=== PATIENT | female | born 1980 | race Caucasian/White ===

== ENCOUNTER 2022-06-01 16:40 | Inpatient (IN) ==
[2022-06-01] MEDS ORDERED: RAPID SEQUENCE INDUCTION BAG ONE (16:59)
[2022-06-01] MEDS ORDERED: dexAMETHasone**PF** 10 MG/ML VIAL ONE (17:00)
[2022-06-01] MEDS ORDERED: PIPERACILLIN/TAZOBACTAM 4.5 GM/120ML D5W IV ONE (17:08)
[2022-06-01] MEDS ORDERED: fentaNYL citrate PF 100 MCG/2 ML VIAL ONE ×2 (17:08→18:30)
[2022-06-01] MEDS ORDERED: PIPERACILLIN/TAZOBACTAM 4.5 GM/120 ML BAG IV ONE (17:15)
[2022-06-01] MEDS ORDERED: PANTOprazole 40 MG in SYRINGE 0 ML IV ONE (17:15)
[2022-06-01] MEDS ORDERED: [UNRECOGNIZED DRUG - OTHER] IV ONE (17:15)
[2022-06-01 17:19] LABS: iSTAT Creatinine 0.6 mg/dl (0.6-1.3); iSTAT Hemoglobin 12.9 g/dl (12.0-16.0); iSTAT Ionized Calcium 1.04 mmol/l (1.12-1.32); iSTAT Potassium 3.2 mmol/L (3.3-5.0)
[2022-06-01] MEDS ORDERED: OPTIRAY 350 100ml IV ONE (17:24)
[2022-06-01] MEDS ORDERED: ROCURONIUM BROMIDE 10 MG/ML 5 ML VIAL IV ONE ×6 (17:27→19:02)
[2022-06-01] MEDS ORDERED: SUCCINYLCHOLINE CHLORIDE 20 MG/ML 10 ML VIAL IV ONE (17:27)
[2022-06-01] MEDS ORDERED: LIDOCAINE 2% MPF LOCAL 5 ML VIAL ONE (17:27)
[2022-06-01] MEDS ORDERED: PROPOFOL IV EMULSION 10 MG/ML 20 ML VIAL IV ONE ×2 (17:27→19:02)
[2022-06-01] MEDS ORDERED: VANCOMYCIN HCL 1,250 MG in SODIUM CHLORIDE 0.9% 250 ML IV ONE (17:30)
[2022-06-01] MEDS ORDERED: LACTATED RINGER'S 250 ML IV ONE (17:34)
[2022-06-01] MEDS ORDERED: LACTATED RINGER'S 1,000 ML IV ONE (17:34)
[2022-06-01] MEDS ORDERED: CHLORHEXIDINE GLUCONATE 0.12% 480 ML MT ONE (17:38)
[2022-06-01] MEDS ORDERED: BUPIVACAINE/EPINEPHRINE 0.5% 1:200,000 1.8 ML CARP ONE (17:38)
--- NOTE | 2022-06-01 17:45 | CT Scan Report ---
CT soft tissue neck w con HISTORY: 41 years-old Female eval airway and abscess follow-up study in a patient with prior left-si ded facial surgery with drainage COMPARISON: None TECHNIQUE: Multiple axial CT images of the soft tissues of the neck were obtained following the intra venous administration of 88 mL Optiray 350. A dose lowering technique was used consistent with the pr incipals of FRANCIS. FINDINGS: The imaged intracranial structures are unremarkable. Orbits are within normal limits. Patent airway. The glottis is within normal limits. Unremarkable thyroid and submandibular glands. There is asymmetr ic enlargement and enhancement of the left sublingual gland. Mildly prominent subcentimeter left cerv ical chain and 70 lymph nodes measuring up to 8 mm are likely reactive. There is asymmetric enlargement with heterogeneous enhancement involving the left masseter with multi locular intramuscular abscess measuring up to 3.5 cm in cranial caudal dimension and 2.9 cm in AP dim ension. Edema extends into the adjacent parotid gland and subcutaneous tissues of the left face and c heek tracking along the platysma and anterior upper chest. Subpleural bulla of the lung apices. Masto id air cells and paranasal sinuses are clear. There is a 3 cm catheter present within the left cheek. Numerous dental caries are noted along with missing teeth. No osseous erosive changes. No large nirmal apical cysts. IMPRESSION: 1. 8 3 cm catheter is present within the left oral cavity. 2. Moderate left facial inflammatory changes with multilocular intramuscular abscess within the paddy ter muscle measuring up to approximately 4 cm. 3. Multifocal odontogenic disease. ACT 112: Negative or not required by law. The above report was generated using voice recognition software. It may contain grammatical, syntax o r spelling errors. Electronically signed by: Julio Esteban M.D. 06/01/2022 5:43 PM
[2022-06-01 17:48] LABS: Basophils # (auto) 0.04 K/uL (0-0.2); Basophils % (auto) 0.2 %; Eosinophils # (auto) 0.02 K/uL (0-0.50); Eosinophils % (auto) 0.1 %; Hematocrit (blood only) 34.1 % (37.0-47.0); Hemoglobin 11.9 g/dl (12.0-16.0); Immature Granulocytes # (auto) 0.11 K/uL (0.01-0.20); Immature Granulocytes % (auto) 0.7 %; Lymphocytes # (auto) 1.09 K/uL (1.2-3.4); Lymphocytes % (auto) 6.8 %; Mean Corpuscular Hemoglobin 32.7 pg (25.0-34.0); Mean Corpuscular Hgb Conc 34.9 g/dL (32.0-36.0); Mean Corpuscular Volume 93.7 fL (80.0-100.0); Mean Platelet Volume 10.1 fL (9.4-12.4); Monocytes # (auto) 0.67 K/uL (0.11-0.59); Monocytes % (auto) 4.2 %; Neutrophils # (auto) 14.13 K/uL (1.40-6.50); Platelet Count 264 K/uL (130-400); RDW Coefficient of Variation 13.1 % (11.5-14.5); Red Blood Count 3.64 M/uL (4.20-5.40); White Blood Count 16.06 K/ul (4.8-10.8)
[2022-06-01] MEDS ORDERED: MEPERIDINE HCL 25 MG/ML CARP/VIAL IV PRN (17:50)
[2022-06-01] MEDS ORDERED: MoRPHine SULFATE 10 MG/ML CARP/VIAL IV PRN (17:50)
[2022-06-01] MEDS ORDERED: ePHEDrine sulfate 50 MG/ML AMP IV PRN (17:50)
[2022-06-01] MEDS ORDERED: ATROPINE SULFATE 0.1 MG/ML 10ML SYR IV PRN (17:50)
[2022-06-01] MEDS ORDERED: fentaNYL citrate PF 100 MCG/2 ML VIAL IV PRN (17:50)
[2022-06-01] MEDS ORDERED: ONDANSETRON INJ 2 MG/ML 2 ML VIAL IV PRN (17:50)
--- NOTE | 2022-06-01 17:50 | Anesthesiology Consultation ---
Date of Service June 01, 2022 Assessment & Plan Chart Review Chart Review: Acceptable Risk for Surgery Consults Requested none ASA ASA2E Proposed Anesthesia Anesthesia Type: General Risk / Benefits Reviewed With: PT / POA / Parent / Guardian, Accepts Plan and Informed Consent Obtained History Surgery Operation Date: 06/01/22 17:45 Proposed Procedures p M. Facial Incision and Drainage - Pablo Garcia, DMD Height/Weight Weight: 67.4 kg Allergies Allergy/AdvReac Type Severity Reaction Status Date / Time bupropion [From Wellbutrin] Allergy Mild Verified 06/01/22 17:49 NPO Date Last Intake of Fluids: 06/01/22 Time Last Intake of Fluids: 12:09 Last Intake of Fluids Comment: sips Date Last Intake of Solids: 05/29/22 Time Last Intake of Solids: 18:00 Past Medical History Medical History (Updated 06/01/22 @ 17:48 by Filomena Bradley DO) Mandibular abscess Ovarian mass Vitamin B12 deficiency Exercise / Class Metabolic Activity II 4-5 Yardwork/Stairs/Walk up hill Past Surgical History Surgical History (Updated 06/01/22 @ 17:48 by Filomena Bradley DO) History of mandibular surgery History of salpingectomy Hx of hysterectomy Past Anesthesia History No Hx of Anesthesia Complications and No Family Hx of Anesthesia Complications History of PONV No Hx of PONV and No Hx of Motion Sickness Social History Smoking Status: Unknown if ever smoked Physical Exam Vital Signs Last Vital Signs Pulse 105 H 06/01/22 17:11 Resp 40 H 06/01/22 16:47 BP 135/85 06/01/22 16:47 Pulse Ox 100 06/01/22 16:47 O2 Del Method Room Air 06/01/22 16:47 ENMT Mouth: + dentition abnormality (left facial swelling unable to open mouth), + poor dentition and + small oral opening Thyromental Distance: > or= 3.5 Finger Breadths Mallampati Class: IV Neck trachea midline; neck extension not limited left submand swelling Respiratory + respiratory distress (mild) Auscultation: lungs clear to auscultation bilaterally Cardiovascular Rate/Rhythm: regular rhythm and + tachycardic Heart Sounds: no murmur Musculoskeletal Spine: normal cervical ROM Extremities: full ROM of extremities Neurologic moves all extremities Psychiatric Orientation: alert and oriented x 3 Testing Laboratory Results 06/01/22 17:07 POC Glucose (other) 100 H
--- NOTE | 2022-06-01 18:11 | Oral/Maxillofacial Consult ---
Date of Consultation June 01, 2022 Assessment & Plan (1) Ludwigs angina: (2) Carious teeth: (3) Abscess of pulp of tooth: History of Present Illness Attending Physician: Pablo Garcia DMD History of Present Illness Oral Maxillofacial Surgery Exam Present Complaint: I have pain/swelling/drainage from my infected lower teeth Went to ER at [facility] for I&D where a 1/4 Rodrigo was placed intraorally. She was sent home- the I&D was not adequate and the infection got much worse. For some reason she left [facility] and came to [facility]- Symptoms have been ongoing for a while. Now emergent necessity for I&D to protect airway this is an emergency Oral Exam: Finding--carious teeth very limited opening trismus secondary to infection Imaging: HISTORY: 41 years-old Female eval airway and abscess follow-up study in a patient with prior left-sided facial surgery with drainage FINDINGS: The imaged intracranial structures are unremarkable. Orbits are within normal limits. Patent airway. The glottis is within normal limits. Unremarkable thyroid and submandibular glands. There is asymmetric enlargement and enhancement of the left sublingual gland. Mildly prominent subcentimeter left cervical chain and 70 lymph nodes measuring up to 8 mm are likely reactive. There is asymmetric enlargement with heterogeneous enhancement involving the left masseter with multilocular intramuscular abscess measuring up to 3.5 cm in cranial caudal dimension and 2.9 cm in AP dimension. Edema extends into the adjacent parotid gland and subcutaneous tissues of the left face and cheek tracking along the platysma and anterior upper chest. Subpleural bulla of the lung apices. Mastoid air cells and paranasal sinuses are clear. There is a 3 cm catheter present within the left cheek. Numerous dental caries are noted along with missing teeth. No osseous erosive changes. No large periapical cysts. IMPRESSION: 1. 8 3 cm catheter is present within the left oral cavity. 2. Moderate left facial inflammatory changes with multilocular intramuscular abscess within the masseter muscle measuring up to approximately 4 cm. 3. Multifocal odontogenic disease. Soft tissue: floor of the mouth, tongue, hard/soft palate, posterior pharyngeal area all grossly swollen This is a pre Ted angina and need immediate I&D Oral Care: Overall oral care is fair Occlusion: Class I TMJ exam: Not able to detremibne Periodontal exam: There is evidence of periodontal pathology to the best that I can determine Head/Neck exam: Neck is swollen and red but no pus or abscess noted, some what limited FROM, some difficulty to extend and flex neck, swollen but no masses, no abnormalities, There is a strong concern of airway compromise and ICU abscission is planned post op. Treatment Plan: EMERGENCY CASE Set up with general anesthesia in hospital due to complexity of the procedure I reviewed the treatment plan and consent with the patient Understanding was expressed. Time was given for questions regarding the surgery, risks and post op care. Discussed alternative to treatment--procedure as planned,no other options The following teeth are decayed and fractured and removal is indicated lower left teeth and any other teeth that are infected. Risks discussed: Bleeding,Pain,swelling,infection, dry socket, delayed healing, nerve injury to face,lips,tongue,chin area which could be permanent (rare). TMJ, jaw stiffness, change in bite (rare), ear pain (referred). Sinus problems like fistula or infection. Need to leave a small root fragment in place to avoid injury to nerve or sinus. Relationship of teeth to nerve/sinus and risk of jaw fracture. Home care reviewed: tooth brushing, rinsing, follow up care with Dr Garcia. diet=[id number] dental. Discussed activity level, driving/work while on Rx pain Meds. Surgery to be set up as emergency NANCY with ICU admission Allergies Allergy/AdvReac Type Severity Reaction Status Date / Time bupropion [From Wellbutrin] Allergy Mild Verified 06/01/22 17:49 Patient History Medical History Mandibular abscess Ovarian mass Vitamin B12 deficiency Surgical History History of mandibular surgery History of salpingectomy Hx of hysterectomy Social History Smoking Status: Unknown if ever smoked Preferred Language: Ukrainian Feels Safe at Home: Yes Review of Systems Review of Systems: Physical Exam Constitutional WD/WN, vitals as above Eyes PERRL, conjunctivae normal, anicteric sclerae Mouth gross swelling and left abscess that is getting worse I&D needed as emergency Neck trachea midline, no thyromegaly, CT shows airway opened Thyroid: normal thyroid Respiratory rapid respiratory effort, lungs clear to auscultation Auscultation: lungs clear to auscultation bilaterally Cardiovascular RRR, no murmur, no edema Rate/Rhythm: regular rate and regular rhythm Skin no rashes, warm and red around the neck and submandibular area Results & Data Vital Signs (Past 12 Hours) Vital Signs Temp Pulse Pulse Resp BP BP Pulse Ox 06/01/22 17:15 104 H 23 127/77 100 06/01/22 17:17 102 H 23 126/93 97 06/01/22 17:15 95 H 19 124/89 96 06/01/22 17:01 101 H 28 H 128/87 99 06/01/22 17:19 105 H 40 H 100 06/01/22 17:00 06/01/22 17:35 36.7 C 104 H 23 127/77 100 06/01/22 17:11 105 H 06/01/22 16:47 104 H 40 H 135/85 100 O2 Del Method 06/01/22 17:15 Room Air 06/01/22 17:17 Room Air 06/01/22 17:15 Room Air 06/01/22 17:01 Room Air 06/01/22 17:19 Room Air 06/01/22 17:00 Room Air 06/01/22 17:35 Room Air 06/01/22 17:11 06/01/22 16:47 Room Air PG Care Time/CCT Total # of Minutes Spent Total Time Spent with Patient: Total time spent is greater than 50% in coordination of care (as documented) at patient's floor/unit and/or counseling patient: Coding Level of Care Code 40998 OFFICE CONSULT LVL Diagnoses Ludwigs angina K12.2 Carious teeth K02.9 Abscess of pulp of tooth K04.01
[2022-06-01 18:13] LABS: Alanine Aminotransferase 8 U/L (7-52); Albumin Level 4.1 gm/dl (3.4-5.0); Alkaline Phosphatase 61 U/L (34-104); Anion Gap 10 (3-11); Aspartate Aminotransferase 15 U/L (13-39); BUN Creatinine Ratio 16.4 (10-20); Bilirubin Direct 0.2 mg/dl (0-0.2); Bilirubin,Total 0.7 mg/dl (0.2-1.0); Blood Urea Nitrogen 10 mg/dl (6-23); Calcium 9.5 mg/dl (8.6-10.3); Carbon Dioxide 24 mmol/L (21-32); Chloride 103 mmol/L (98-107); Est GFR (African American) 132.4 ml/min; Est GFR (Non-African American) 114.2 ml/min; Glucose 99 mg/dl (70-99(Fasting)); Magnesium 1.6 mg/dl (1.7-2.4); Potassium 3.1 mmol/L (3.5-5.1); Sodium 137 mmol/L (136-145); Total Protein 7.6 gm/dl (6.0-8.3)
[2022-06-01 18:18] LABS: Troponin I High Sensitivity 12.2 pg/ml (0-14)
[2022-06-01] MEDS ORDERED: ONDANSETRON INJ 2 MG/ML 2 ML VIAL ONE (18:30)
--- NOTE | 2022-06-01 19:30 | Anesthesiology Progress Note ---
Date of Service June 01, 2022 Anesthesia Post Procedure Vital Signs Vital Signs: Temp Pulse Pulse Resp BP BP Pulse Ox 06/01/22 17:15 104 H 23 127/77 100 06/01/22 17:17 102 H 23 126/93 97 06/01/22 17:15 95 H 19 124/89 96 06/01/22 17:01 101 H 28 H 128/87 99 06/01/22 17:19 105 H 40 H 100 06/01/22 17:00 06/01/22 17:35 36.7 C 104 H 23 127/77 100 06/01/22 17:11 105 H 06/01/22 16:47 104 H 40 H 135/85 100 O2 Del Method 06/01/22 17:15 Room Air 06/01/22 17:17 Room Air 06/01/22 17:15 Room Air 06/01/22 17:01 Room Air 06/01/22 17:19 Room Air 06/01/22 17:00 Room Air 06/01/22 17:35 Room Air 06/01/22 17:11 06/01/22 16:47 Room Air Transfer of Care Handoff Completed per policy Notes Mental Status: see notes below Nausea / Vomiting: adequately controlled Pain: adequately controlled Airway Patency, RR, SpO2: see Notes below BP & HR: stable & adequate Hydration State: stable & adequate Anesthetic Complications: no major complications apparent Notes: Pt intubated in OR and taken to ICU intubated for AW protection overnight given I+D and submandibular abscess. No complications noted, report to RN and Outreach Clinician.
[2022-06-01] MEDS ORDERED: fentaNYL citrate 2,500 MCG/250 ML BAG IV ONE (19:31)
[2022-06-01] MEDS ORDERED: fentaNYL BOLUS from BAG IV PRN (19:33)
[2022-06-01] MEDS ORDERED: STAT IV Infusion **Titration per Protocol STA ×2 (19:33→20:53)
--- NOTE | 2022-06-01 19:39 | Operative Report ---
PG Post Operative Report Pre & Post Diagnosis Operation Date: 06/01/22 17:45 Pre-Op Diagnosis: SOB,LOCKED JAW,HARD TIME BREATHING Post-Op Diagnosis: SOB,LOCKED JAW,HARD TIME BREATHING I identified the patient and participated in the time-out.: Yes Procedure Operation Date: 06/01/22 17:45 Actual Procedures p Facial Incision and Drainage(Left) - Pablo Garcia DMD Surgeon Pablo Garcia DMD Breastfeeding Peer Counselor none Estimated Blood Loss 10 Findings Consistent with Post-Op Diagnosis gross infection lower left submandibular and submental area I and D site mucobuccal space left side with small Rodrigo drain--this tissue is very infected and the wound has dehisced. Exposure of the mandibular bone Specimens Culture pus from abscess Anesthesia Type General Complications none Indications facial abscess left side Description of Procedure CPT 98963 I and D deep neck, submandibular abscess left side K12.2 Ludwigs angina left submandibular and submental [id number] for surgical extraction of # 19,20 Actual Procedures p Incision and Drainage left Submandibular/ mandibular and submental space Abscess; Removal of Tooth #30 and 29(Not Applicable) - Pablo Garcia DMD Once cleared for surgery general anesthesia was achieved, the eyes were protected by the anesthesia dept criteria. A time out was take for patient ID, antibiotics, equipment and position verification once all agreed the procedure began. Local anesthesia using Marcaine with a vasoconstrictor ( 1.8 ml per site) given into right inferior alveolar nerve A throat pack was placed after the oral cavity was irrigated with saline. Once a surgical level of anesthesia was obtained and the local anesthesia was given time for the blocks the surgery was started. I turned my attention to the infection which was located in the submandibular and submental area. The tongue was elevated and there was also swelling associated with tooth #19 and 20 ( see CT scan report) Incision and Drainage Abril was drained at [facility] yesterday however a very small Rodrigo drain was placed only in the mucobuccal space which was inadequate to drain the infection. Using a 15 blade and scissors I was able to remove the prior drain and extend the small drainage site. I and D site mucobuccal space left side with small Rodrigo drain--this tissue is very infected and the wound has dehisced. Once the incision was made a lot of pus extruded from the site. This drainage was cultured for anaerobic and aerobic bacteria. A curved hemostat was carefully placed into the infected space along the medial/ lateral side of the lower jaw and into the submental space. Some further drainage was now allowed to escape. I palpated the chin and submental area and no further drainage was expressed. The area was irrigated with at least 100 ml of NS solution. I now turned my attention to the submandibular and masseter and parotid spaces. The 15 blade was used to make a small incision in the submandibular area below the most fluctuant area. A curved hemostat was carefully placed into the infected space along the masseter and temporal muscles to drain the pocket as seen on the CT scan. This allowed a lot of drainage. I now placed a 1/2 inch Rodrigo from the submandibular site into the mouth Another drain was placed superior into the parotic area space with a 1/4 Rodrigo drain . The submental area did not need a drain as this swelling and the anterior chest swelling is reactive in nature w/o abscess. Some further drainage was now allowed to escape.The drains were secured with a 5-0 Nylon. Lower # 19,20 The full thick Muco-periosteal flap that was made on the facial aspect from # 17-22 for the I&D was used to gain access to the teeth. The flap was reflected to expose the the subperiosteal space the bone adjacent to # 19,20. The rongeur was used to remove bone, the teeth were removed with a 301 elevator, the mental nerve was intact, there was a large amount of granulation tissue on the apex and some more pus that was expressed. The patient tolerated the surgery very well. The gingival tissue and Rodrigo drain was suture with a 2-0 chromic I inspected the sites to insure all bleeding was controlled. I removed the throat pack and suctioned the throat. All instrument and sponge count was correct. An OG tube was passed and left in place as she will be transfer to ICU for airway management secondary to the gross facial swelling and her inability to swollen pre-op. The patient was taken to the ICU with NG tube and intubated with all vital sign stable. The patient tolerated the surgery very well. I will follow the patient tomorrow afternoon Discussed the case with OFELIA Henry I attest to the content of the Intraoperative Record and any orders documented therein. Any exceptions are noted below.
--- NOTE | 2022-06-01 19:40 | Critical Care Consultation ---
Date of Consultation June 01, 2022 Assessment & Plan (1) Ludwigs angina: (2) Mandibular abscess: (3) Endotracheally intubated: Plan Patient is status post I&D of mandibular abscess. Will likely perform SBT and extubate tomorrow as long as cuff leak is present. Continue sedation tonight with fentanyl. Consider the addition of propofol or Precedex if required to maintain RASS of -1. Continue vancomycin and Zosyn. Continue lung protective ventilation strategy. Replace electrolytes per protocol History of Present Illness Reason for Consultation: Airway protection Attending Physician: Galindo Concepcion MD History of Present Illness 41-year-old female who presented to the ER due to increased swelling in her submandibular region and difficulty breathing. Yesterday she went to the ER in [place] and had a Rodrigo drain placed. She had increased swelling and pain on arrival to the ER. She was taken back emergently to the OR where Dr. Garcia did an extensive I&D of the submandibular region and placed a drain. She is currently intubated and sedated in the ICU. History is unobtainable from the patient. History is obtained from discussion with the anesthesiologist, ER physician and oral maxillofacial surgeon. Also discussed at bedside with RN. She received 10 mg of dexamethasone in the ER. She also received vancomycin and Zosyn. Allergies Allergy/AdvReac Type Severity Reaction Status Date / Time bupropion [From Wellbutrin] Allergy Mild Verified 06/01/22 17:49 Home Medications Medication Instructions Recorded Confirmed Type escitalopram oxalate 20 mg tablet 20 mg PO DAILY 06/01/22 06/01/22 History Patient History Medical History (Updated 06/01/22 @ 19:40 by Aftab Jain MD) Endotracheally intubated Mandibular abscess Ovarian mass Vitamin B12 deficiency Surgical History History of mandibular surgery History of salpingectomy Hx of hysterectomy Social History Smoking Status: Unknown if ever smoked Preferred Language: Panamanian Feels Safe at Home: Yes Review of Systems Review of Systems: Unobtainable due to endotracheal tube and Unobtainable due to reduced consciousness Physical Exam Physical Exam: Constitutional: Intubated and sedated. Eyes: Pupils are equal round and reactive to light. Conjunctivae are normal. Anicteric sclera. Ears nose, mouth and throat: Intubated and sedated. Neck: Trachea is midline. Visual inspection is normal. Respiratory: Clear to auscultation bilaterally. No use of accessory muscles. No significant clubbing noted. Cardiovascular: Regular rate and rhythm. No murmurs. No edema. Gastrointestinal: Normal bowel sounds, soft, nontender and nondistended. No hepatosplenomegaly noted. Musculoskeletal: No cyanosis. Patient is able to move all extremities. Strength is 5 out of 5 in the upper and lower extremities. Skin: No rashes, warm dry and intact. Neurologic: No obvious focal neurological deficits seen. Psychiatric: Intubated and sedated. Results & Data Results & Data Vital Signs (Past 12 Hours) Vital Signs Temp Pulse Pulse Resp BP BP Pulse Ox 06/01/22 17:15 104 H 23 127/77 100 06/01/22 17:17 102 H 23 126/93 97 06/01/22 17:15 95 H 19 124/89 96 06/01/22 17:01 101 H 28 H 128/87 99 06/01/22 17:19 105 H 40 H 100 06/01/22 17:00 06/01/22 17:35 36.7 C 104 H 23 127/77 100 06/01/22 17:11 105 H 06/01/22 16:47 104 H 40 H 135/85 100 O2 Del Method 06/01/22 17:15 Room Air 06/01/22 17:17 Room Air 06/01/22 17:15 Room Air 06/01/22 17:01 Room Air 06/01/22 17:19 Room Air 06/01/22 17:00 Room Air 06/01/22 17:35 Room Air 06/01/22 17:11 06/01/22 16:47 Room Air Coding Level of Care Code 20819 IN/OBS CONSULT LVL 4,60M Diagnoses Ludwigs angina K12.2 Mandibular abscess M27.2 Endotracheally intubated Z97.8
[2022-06-01] MEDS ORDERED: dexMEDEtomidine 200 MCG/50 ML BAG IV SCH (19:45)
[2022-06-01] MEDS ORDERED: fentaNYL citrate 2,500 MCG/250 ML BAG IV SCH (19:45)
[2022-06-01] MEDS ORDERED: CALCIUM GLUCONATE 10% 1,000 MG in DEXTROSE 5% 50 ML IV ONE (19:59)
[2022-06-01] MEDS ORDERED: STAT IV STA (19:59)
[2022-06-01 20:27] LABS: iSTAT Allen Test Pass; iSTAT Art Bld Gas pCO2 Correct 26 mmHg (35-46); iSTAT Art Bld Gas pH Corrected 7.492 (7.35-7.45); iSTAT Arterial Blood Gas HCO3 20 meg/L (19-24); iSTAT Arterial Blood Gas pCO2 25 mmHg (35-46); iSTAT Arterial Blood Gas pO2 140 mmHg (80-95); iSTAT Arterial Blood Gas pO2 C 143; iSTAT Carbon Dioxide 20 mmol/L (24-31); iSTAT FiO2 40 %; iSTAT Hematocrit 30 % (37-47); iSTAT Hemoglobin 10.2 g/dl (12.0-16.0); iSTAT Potassium 3.2 mmol/L (3.3-5.0); iSTAT Site R Radial; iSTAT Sodium 137 mmol/L (135-144)
[2022-06-01] MEDS: propofoL 1,000 MG/100 ML VIAL IV SCH (20:30)
[2022-06-01] MEDS ORDERED: PROPOFOL IV EMULSION 10 MG/ML 100 ML VIAL IV ONE (20:49)
[2022-06-01] MEDS ORDERED: PROPOFOL BOLUS FROM BAG IV PRN (20:53)
--- NOTE | 2022-06-01 21:03 | History & Physical Report ---
Date of Service June 01, 2022 Assessment & Plan (1) Ludwigs angina: (2) Mandibular abscess: (3) Abscess of pulp of tooth: (4) Carious teeth: (5) Endotracheally intubated: Plan Mandibular abscess with carious teeth Status post I&D of left facial abscess with with teeth extraction by Dr. Garcia EBL 10 mL Currently patient is intubated in the ICU Plan is for extubation tomorrow Per Dr. Garcia once patient is extubated can place patient on clear liquid diet Per Dr. Garcia IV Unasyn should be adequate Currently on IV Zosyn Intraoperative cultures pending Blood cultures pending Hypokalemia Hypomagnesemia Being replaced by violin mechanic Chronic medical problems include: Tobacco abuse allergic to nicotine patch, depression, GERD and history of peptic ulcer disease Pt only home medication is escitalopram per EPIC, will need to resume once alert; also will need to confirm med rec once alert DVT Ppx: SCDS Dispo: ICU, likely downgrade tomorrow once extubated PCP: Katie Chase - out of [place] FULL CODE A total of 75 minutes was spent with greater than 50% of that time personally viewing all current laboratory work and diagnostic imaging studies obtained in the ED. Additionally, I was able to view the patients past medication reconciliation and history with direct visualization in the patients chart. Included in the time above, a portion of that time was spent assessing the pa tient while discussing and collaborating with specialists, if necessary, and making medical decision making on treatment plan. All of the above was collaborated with Dr Concepcion. Please see addendum for further details. Admission and Anticipated Discharge Date Admission Date: June 01, 2022 History of Present Illness Chief Complaint: Dental infection, pt admitted to ICU Primary Care Provider: LAURA Saunders This is a 41-year-old female who has significant past medical history of GERD, peptic ulcer disease, CARINE, tobacco use disorder who presented to ED secondary to worsening dental infection and shortness of breath. Of significance patient was seen at [facility] ER yesterday due to dental infection and a Rodrigo drain was placed. She was placed on oral antibiotics and received IV antibiotics while in ED. Due to worsening infection patient started developing difficulty breathing and presented to ER. Patient was taken emergently to the OR with Dr. Garcia who did an extensive I&D in the submandibular region, teeth were extracted and 2 drains were placed. Her airway remained patent and she remains intubated. He feels source control has been achieved. She is admitted to the ICU secondary to currently being intubated. ROS unobtainable due to unconsciousness. In ED she received IV vancomycin and Zosyn. Allergies Allergy/AdvReac Type Severity Reaction Status Date / Time bupropion [From Wellbutrin] Allergy Mild Verified 06/01/22 17:49 keflex Allergy Mild Hives Uncoded 06/01/22 20:50 Home Medications Medication Instructions Recorded Confirmed Type escitalopram oxalate 20 mg tablet 20 mg PO DAILY 06/01/22 06/01/22 History Past Med/Surg History Medical History Endotracheally intubated Mandibular abscess Ovarian mass Vitamin B12 deficiency Surgical History (Updated 06/01/22 @ 20:55 by Haylee Henry PA-C) History of History of mandibular surgery History of salpingectomy Hx of hysterectomy Family History Other Coronary heart disease Diabetes Social History Smoking Status: Current every day smoker Preferred Language: Paraguayan Communication Ability: Unable Review of Systems Review of Systems: Unobtainable due to endotracheal tube Physical Exam Physical Exam: Please refer to attending addendum for physical exam findings. Results & Data Results & Data Vital Signs (Past 12 Hours) Vital Signs Temp Pulse Pulse Resp BP BP Pulse Ox 06/01/22 19:51 37.6 C H 92 H 18 130/85 100 06/01/22 19:20 18 06/01/22 19:41 37.5 C 94 H 18 135/86 100 06/01/22 19:31 37.6 C H 96 H 16 129/91 100 06/01/22 19:21 37.5 C 96 H 20 129/87 100 06/01/22 17:15 104 H 23 127/77 100 06/01/22 17:17 102 H 23 126/93 97 06/01/22 17:15 95 H 19 124/89 96 06/01/22 17:01 101 H 28 H 128/87 99 06/01/22 17:19 105 H 40 H 100 06/01/22 17:00 06/01/22 17:35 36.7 C 104 H 23 127/77 100 06/01/22 17:11 105 H 06/01/22 16:47 104 H 40 H 135/85 100 O2 Del Method FiO2 06/01/22 19:51 Mechanical Vent 40 06/01/22 19:20 40 06/01/22 19:41 Mechanical Vent 40 06/01/22 19:31 Mechanical Vent 40 06/01/22 19:21 Mechanical Vent 40 06/01/22 17:15 Room Air 06/01/22 17:17 Room Air 06/01/22 17:15 Room Air 06/01/22 17:01 Room Air 06/01/22 17:19 Room Air 06/01/22 17:00 Room Air 06/01/22 17:35 Room Air 06/01/22 17:11 06/01/22 16:47 Room Air Diagnostic Findings Soft Tissue Neck CT 06/01/22 17:17 CT soft tissue neck w con HISTORY: 41 years-old Female eval airway and abscess follow-up study in a patient with prior left-sided facial surgery with drainage COMPARISON: None TECHNIQUE: Multiple axial CT images of the soft tissues of the neck were obtained following the intravenous administration of 88 mL Optiray 350. A dose lowering technique was used consistent with the principals of ALARA. FINDINGS: The imaged intracranial structures are unremarkable. Orbits are within normal limits. Patent airway. The glottis is within normal limits. Unremarkable thyroid and submandibular glands. There is asymmetric enlargement and enhancement of the left sublingual gland. Mildly prominent subcentimeter left cervical chain and 70 lymph nodes measuring up to 8 mm are likely reactive. There is asymmetric enlargement with heterogeneous enhancement involving the l eft masseter with multilocular intramuscular abscess measuring up to 3.5 cm in cranial caudal dimension and 2.9 cm in AP dimension. Edema extends into the adjacent parotid gland and subcutaneous tissues of the left face and cheek tracking along the platysma and anterior upper chest. Subpleural bulla of the lung apices. Mastoid air cells and paranasal sinuses are clear. There is a 3 cm catheter present within the left cheek. Numerous dental caries are noted along with missing teeth. No osseous erosive changes. No large periapical cysts. IMPRESSION: 1. 8 3 cm catheter is present within the left oral cavity. 2. Moderate left facial inflammatory changes with multilocular intramuscular abscess within the masseter muscle measuring up to approximately 4 cm. 3. Multifocal odontogenic disease. ACT 112: Negative or not required by law. The above report was generated using voice recognition software. It may contain grammatical, syntax or spelling errors. Electronically signed by: Julio Esteban M.D. 06/01/2022 5:43 PM Medications Administered Current Inpatient Medications Fentanyl Citrate (Fentanyl Bolus From Bag) 50 mcg IV Q60M PRN PRN Reason: Pain or Agitation Stop: 06/15/22 19:32 Magnesium Sulfate/Dextrose (Magnesium Sulfate / D5w) 1 gm in 100 mls @ 50 mls/hr IV Q2H REYNALDO Stop: 06/02/22 00:59 Potassium Chloride (K Will / Wtr) 10 meq in 100 mls @ 100 mls/hr IV Q1H REYNALDO Stop: 06/01/22 22:59 Fentanyl Citrate (Fentanyl Citrate) 2,500 mcg in 250 mls @ 2.5 mls/hr IV .Q96H REYNALDO; Protocol Stop: 06/15/22 19:44 Piperacillin Sod/Tazobactam (Sod 3.375 gm/ Dextrose) 115 mls @ 28.75 mls/hr IV Q8H REYNALDO; Protocol Stop: 06/08/22 21:59 Propofol (Diprivan) 1,000 mg in 100 mls @ 8.088 mls/hr IV .[id number] REYNALDO; Protocol Stop: 06/04/22 20:59 Miscellaneous (Icu Electrolyte Replacement Protocol) 1 each N/A BID@06,18 REYNALDO; Protocol Stop: 06/09/22 05:59 Miscellaneous (Icu Protocol For Hyperglycemia) 1 each N/A ACHS REYNALDO Stop: 06/03/22 20:59 Miscellaneous (Stat Iv Infusion Titration Per Protocol) 1 each N/A NOW STA Stop: 06/01/22 20:54 Propofol (Propofol Bolus From Bag) 20 mg IV Q5M PRN PRN Reason: Sedation Stop: 06/04/22 20:52 COVID-19 Results Results COVID-19 Adm Lab Results: RBC 3.64 M/uL (4.20-5.40) L 06/01/22 WBC 16.06 K/ul (4.8-10.8) H 06/01/22 Hgb 11.9 g/dl (12.0-16.0) L 06/01/22 Hct 34.1 % (37.0-47.0) L 06/01/22 Plt Count 264 K/uL (130-400) 06/01/22 Neutrophils (%) (Auto) 88.0 % 06/01/22 Lymphocytes (%) (Auto) 6.8 % 06/01/22 Monocytes # (Auto) 0.67 K/uL (0.11-0.59) H 06/01/22 Eosinophils # (Auto) 0.02 K/uL (0-0.50) 06/01/22 Immature Granulocyte % (Auto) 0.7 % 06/01/22 Neutrophils # (Auto) 14.13 K/uL (1.40-6.50) H 06/01/22 Lymphocytes # (Auto) 1.09 K/uL (1.2-3.4) L 06/01/22 Monocytes # (Auto) 0.67 K/uL (0.11-0.59) H 06/01/22 Eosinophils # (Auto) 0.02 K/uL (0-0.50) 06/01/22 Basophils # (Auto) 0.04 K/uL (0-0.2) 06/01/22 Immature Granulocyte # (Auto) 0.11 K/uL (0.01-0.20) 3 Na 137 mmol/L (136-145) 06/01/22 K 3.1 mmol/L (3.5-5.1) L 06/01/22 Cl 103 mmol/L (98-107) 06/01/22 CO2 24 mmol/L (21-32) 06/01/22 Anion Gap 10 (3-11) 06/01/22 BUN 10 mg/dl (6-23) 06/01/22 Creatinine 0.61 mg/dl (0.6-1.2) 06/01/22 BUN/Creatinine Ratio 16.4 (10-20) 06/01/22 Glucose Level 99 mg/dl (70-99(Fasting)) 06/01/22 Ca 9.5 mg/dl (8.6-10.3) 06/01/22 Total Bilirubin 0.7 mg/dl (0.2-1.0) 06/01/22 Direct Bilirubin 0.2 mg/dl (0-0.2) 06/01/22 AST/SGOT 15 U/L (13-39) 06/01/22 ALT/SGPT 8 U/L (7-52) 06/01/22 Alkaline Phosphatase 61 U/L (34-104) 06/01/22 Total Protein 7.6 gm/dl (6.0-8.3) 06/01/22 Albumin 4.1 gm/dl (3.4-5.0) 06/01/22 Procalcitonin 0.28 ng/ml (0-0.5) 06/01/22 SARS-CoV-2, RNA, NAAT NEGATIVE (NEGATIVE) 06/01/22 Sample Site R Radial 06/01/22 POC pH 7.50 (7.35-7.45) H 06/01/22 POC pCO2 25 mmHg (35-46) L 06/01/22 POC pO2 140 mmHg (80-95) H 06/01/22 POC HCO3 20 jose antonio/L (19-24) 06/01/22 POC Total CO2 20 mmol/L (24-31) L 06/01/22 POC Base Excess -4.0 jose antonio/L (-9-1.8) 06/01/22 Ox Delivery Device Ventilator 06/01/22 POC O2 Rate 18 06/01/22 Tidal Volume 400 06/01/22 PEEP 5 06/01/22 Code Status & VTE Plan Code Status Full code VTE Prophylaxis Plan VTE Prophylaxis will be ordered: Yes Supervising Physician Co-Signing Physician Notes Attending addendum: The patient was seen and examined in the ICU He is intubated following I&D of left mandibular abscess with extraction of 2 associated teeth Apparently she had had a Rodrigo drain was placed in left mandibular tooth yesterday in the ER at [facility] in [place] She complained to have increasing swelling of the left mandibular area associated with pain and difficulty in eating when she was taken to ER at [place] today Unfortunately she was brought back to ER at [facility] with increasing shortness of breath and swelling of the left mandible and adjoining area She was urgently taken to the OR and dental abscess was removed with extraction of 2 teeth from left mandible area and 2 drainage tube was placed in She was intubated and was placed in ICU She was given intravenous Zosyn and vancomycin Cultures were taken On examination Intubated and sedated in the ICU Hemodynamically stable Chestdecreased breath sounds bilaterally [id number] Abdomenbenign Heart admission labs and imaging studies reviewed Status post left mandibular abscess I&D and extraction of 2 teeth Patient is intubated and sedated Continue current antibiotic and await culture and sensitivity Appreciate input from violin mechanic and oropharyngeal surgeon Agree with assessment as outlined above by JAYNA Perry Dr
[2022-06-01] MEDS: MAGNESIUM SULFATE / D5W 1 GM/100 ML BAG IV SCH ×2 (21:08→22:38)
[2022-06-01] MEDS: POTASSIUM CHLORIDE / WTR 10 MEQ/100 ML PLCT IV SCH ×3 (21:08→23:11)
[2022-06-01] MEDS: ICU Protocol for HYPERglycemia SCH (21:09)
[2022-06-01] MEDS ORDERED: SODIUM CHLORIDE 0.9% 500 ML IV SCH (21:30)
[2022-06-01 21:51] LABS: Appearance Urine Clear (Clear); Bacteria Urine Automated Negative (Negative); Bilirubin Urine Negative (Negative); Blood Urine 2+ (Negative); Cast Urine Automated 0 /lpf (0-5); Color Urine Yellow; Epithelial Cell Urine Auto 0-5 /lpf (0-5); Glucose Urine UA Negative (Negative); Ketones Urine 2+ (Negative); Leukocyte Esterase Urine Negative (Negative); Nitrite Urine Negative (Negative); Protein Urine Negative (Negative); Specific Gravity Urine 1.033 (1.000-1.030); Urobilinogen Urine Negative (Negative); WBC Urine Automated 0 /hpf (0-5)
[2022-06-01] MEDS: PIPERACILLIN/TAZOBACTAM 3.375 GM in DEXTROSE 5% 100 ML IV SCH (22:39)
[2022-06-02] MEDS: POTASSIUM CHLORIDE / WTR 10 MEQ/100 ML PLCT IV SCH ×5 (00:20→11:42)
[2022-06-02 00:23] LABS: BUN Creatinine Ratio 10.6 (10-20); Calcium 8.7 mg/dl (8.6-10.3); Creatinine Clr Calc Pharmacy 156.3 ml/min; Est GFR (African American) 144.2 ml/min; Est GFR (Non-African American) 124.4 ml/min; Magnesium 2.4 mg/dl (1.7-2.4); Phosphorus 2.4 mg/dl (2.5-4.9); Potassium 4.1 mmol/L (3.5-5.1)
[2022-06-02] MEDS: MAGNESIUM SULFATE / D5W 1 GM/100 ML BAG IV SCH (01:00)
[2022-06-02] MEDS: propofoL 1,000 MG/100 ML VIAL IV SCH ×2 (01:04→05:14)
--- NOTE | 2022-06-02 01:30 | Emergency Department Note ---
Impression & Plan Ted's angina, Mandibular abscess To the OR with Dr. Garcia emergently ED Provider Note NAME: BERT PUCKETT AGE: 41 SEX: F ARRIVES VIA: Walk-In INFORMANT: Patient and her ED PROVIDER(S): Ashley Valerio DO CHIEF COMPLAINT: "Cannot breathe" PLAN: Disposition: To the OR with Dr. Garcia Condition: Critical MEDICAL DECISION MAKING: This is a 41-year-old female patient who presents to the emergency department with her . They drove here from the emergency department at [facility]. explains that they were seen in the emergency department yesterday for a dental infection where she had a Rodrigo drain placed. She was given a dose of IV antibiotics there and started on oral Augmentin but has not been able to take it. Today, the patient developed increasing difficulty swallowing and shortness of breath. She states that the infection has spread throughout her face, jaw, neck and chest. They went back to the ER at [facility] and were told that they had no available ER beds to place her in. The became angry and they drove here. On presentation to the ER, the patient was significantly stridorous and in moderate respiratory distress from obvious Ted's angina. She was emergently evaluated and placed on supplemental oxygen. IVs were initiated and she received IV steroids and IV antibiotics. Anesthesia was emergently consulted as well as oral maxillofacial surgery. She went for an emergent CT scan of the soft tissues of her neck. She will go to the OR with Dr. Garcia for emergent maintenance of the airway and drainage of the abscesses. Triage Nursing notes reviewed and agree with them. Additional history obtained from the is at the bedside External records were reviewed from the E system Vital Signs: reviewed and remarkable for tachycardia Differential diagnosis: Airway compromise secondary to edema, Ted's angina, dental abscess ER treatment provided: IV fentanyl IV Decadron IV vancomycin IV Zosyn Diagnostics interpreted by me: ECG: Normal sinus rhythm at a rate of [address] segment elevation or signs of ischemia. No ectopy. Cardiac Monitoring: Sinus tachycardia at 104 Laboratory studies: See below Imaging studies: As per radiology CT scan of the soft tissues of the neck: See report Consultation(s): Anesthesia-Dr. Kirk GRIGGS-Dr. Garcia Critical care medicine-Dr. Gonzales [facility] Hospitalist-Dr. Concepcion HPI: 41/F arrives for evaluation of difficulty breathing. Patient was diagnosed with a dental infection yesterday at [facility] in [place] and had a surgical procedure performed with a Glenwood drain placed. She was discharged home on Augmentin. Patient's explains that her situation worsened today where she developed difficulty swallowing and breathing. They returned to the emergency department in [place] but there was an extended wait in triage so the decided to drive the patient to our emergency department. PAST MEDICAL HISTORY:See Below PAST SURGICAL HISTORY:See Below FAMILY HISTORY:See Below SOCIAL HISTORY:See Below HOME MEDICATIONS:See list ALLERGIES:See list VITALS:See Below PHYSICAL EXAMINATION: HEENT: Head - normocephalic with obvious significant edema to the left side of her face and mandible. Pupils are equal, round, and reactive to light. Extraocular eye muscles are intact, and sclera are anicteric. Nose - moist nasal mucosa without discharge. Mouth: patient unable to open her mouth more than 1 fingerbreadth. There was obvious tongue deviation to the right. Neck: Significant fullness consistent with Ted's angina. The patient had severe pain with even light palpation to the anterior neck. There was s ignificant erythema and edema noted to the neck that extended down into the suprasternal notch. Heart: Tachycardic rate and regular rhythm. There is a normal S1 and S2 with no murmurs, clicks, or gallops appreciated. Lungs: Clear to auscultation bilaterally with no wheezes, rales, or rhonchi. Abdomen: Soft, completely nontender, nondistended, with good bowel sounds. There are no palpable pulsatile masses or hepatosplenomegaly. There is no guarding, rigidity, or rebound noted. Extremities: No evidence of cyanosis, clubbing, or edema. There are easily palpable peripheral pulses. Skin: warm and dry with good turgor and no rashes. ED COURSE: The patient was emergently evaluated in room A-1. 2 large-bore IV locks were initiated and labs were drawn as above. The patient was medicated with 10 mg of IV dexamethasone and 50 mcg of IV fentanyl. Anesthesia was consulted emergently. Patient was given a dose of IV Zosyn and IV vancomycin. I consulted with Dr. Garcia from [facility] emergently. Patient will go to CT scan for CT of the soft tissues of the neck emergently. I have personally spent greater than 40 minutes of critical care time in the direct management of this patient. This includes bedside care, interpretation of diagnostic studies, and testing, discussion with consultants, patient, and family members, and other required patient management activities. This 40 minutes is in excess of all separately billable procedures. Ashley Valerio DO Past Med/Surg History Medical History (Updated 06/03/22 @ 12:27 by Ashley Valerio DO) Endotracheally intubated Mandibular abscess Ovarian mass Vitamin B12 deficiency Surgical History (Updated 06/02/22 @ 12:47 by Ashli Grijalva RN) History of History of incision and drainage (06/01/22) Facial Incision and Drainage(Left) - Pablo Garcia DMD History of mandibular surgery History of salpingectomy Hx of hysterectomy Family History Other Coronary heart disease Diabetes Social History Smoking Status: Current every day smoker Preferred Language: [place] Citizen Communication Ability: Effective Assistive Devices: None Allergies Allergies Allergy/AdvReac Type Severity Reaction Status Date / Time bupropion [From Wellbutrin] Allergy Mild Unknown Verified 06/02/22 15:18 cephalexin [From Keflex] Allergy Hives Verified 06/02/22 15:18 Home Meds Home Medications Medication Instructions Recorded Confirmed escitalopram oxalate 20 mg tablet 20 mg PO DAILY 06/01/22 06/01/22 Previous Rx's Medication Instructions Recorded amoxicillin 875 mg-potassium 1 tab PO Q12H #20 tabs 06/02/22 clavulanate 125 mg tablet hydrocodone 5 mg-acetaminophen 325 1 tab PO Q4H PRN pain #14 tabs 06/02/22 mg tablet ondansetron HCl 8 mg tablet 8 mg PO Q8H PRN nausea and 06/02/22 vomiting #10 tabs Results & Data (ED) Vital Signs Vital Signs - 24 hr 06/01/22 16:47 06/01/22 17:11 06/01/22 17:35 Temperature 36.7 C Temperature Source Temporal Artery Scan Pulse Rate 104 H 105 H Pulse Rate [Apical] 104 H Pulse Rate from SpO2 Sensor Pulse Rhythm Regular Pulse Strength Normal Respiratory Rate 40 H 23 Respiratory Effort / Characteristics Non-Labored Spontaneous Respiratory Depth Normal Blood Pressure 135/85 Blood Pressure [Left Arm] 127/77 Blood Pressure Mean 101 Blood Pressure Mean [Left Arm] 93 Blood Pressure Position Sitting Blood Pressure Position [Left Arm] Lying Pulse Oximetry 100 100 Oxygen Delivery Method Room Air Room Air Sepsis Recent Fever Within 48 Hours No Sepsis New/Unexplained Change in Mental Status No Sepsis Action Taken by Nursing Physician Notified 06/01/22 17:00 06/01/22 17:19 06/01/22 17:01 Temperature Temperature Source Pulse Rate 105 H 101 H Pulse Rate [Apical] Pulse Rate from SpO2 Sensor 100 H Pulse Rhythm Regular Pulse Strength Respiratory Rate 40 H 28 H Respiratory Effort / Characteristics Respiratory Depth Blood Pressure 128/87 Blood Pressure [Left Arm] Blood Pressure Mean 100 Blood Pressure Mean [Left Arm] Blood Pressure Position Blood Pressure Position [Left Arm] Pulse Oximetry 100 99 Oxygen Delivery Method Room Air Room Air Room Air Sepsis Recent Fever Within 48 Hours Sepsis New/Unexplained Change in Mental Status Sepsis Action Taken by Nursing 06/01/22 17:15 06/01/22 17:17 06/01/22 17:15 Temperature Temperature Source Pulse Rate 95 H 102 H 104 H Pulse Rate [Apical] Pulse Rate from SpO2 Sensor 96 H 101 H Pulse Rhythm Pulse Strength Respiratory Rate 19 23 23 Respiratory Effort / Characteristics Respiratory Depth Blood Pressure 124/89 126/93 127/77 Blood Pressure [Left Arm] Blood Pressure Mean 100 104 Blood Pressure Mean [Left Arm] Blood Pressure Position Blood Pressure Position [Left Arm] Pulse Oximetry 96 97 100 Oxygen Delivery Method Room Air Room Air Room Air Sepsis Recent Fever Within 48 Hours Sepsis New/Unexplained Change in Mental Status Sepsis Action Taken by Nursing Laboratory Data 06/01/22 16:55 06/01/22 23:51 Lab Results 06/01/22 06/01/22 06/01/22 Range/Units 16:55 16:55 16:55 WBC 16.06 H (4.8-10.8) K/ul RBC 3.64 L (4.20-5.40) M/uL Hgb 11.9 L (12.0-16.0) g/dl POC Hgb (12.0-16.0) g/dl Hct 34.1 L (37.0-47.0) % POC Hct (37-47) % MCV 93.7 (80.0-100.0) fL MCH 32.7 (25.0-34.0) pg MCHC 34.9 (32.0-36.0) g/dL RDW Std Deviation 45.0 (36.4-46.3) fL RDW Coeff of Clara 13.1 (11.5-14.5) % Plt Count 264 (130-400) K/uL MPV 10.1 (9.4-12.4) fL Immature Gran % (Auto) 0.7 % Neut % (Auto) 88.0 % Lymph % (Auto) 6.8 % Stark % (Auto) 4.2 % Eos % (Auto) 0.1 % Baso % (Auto) 0.2 % Neut # (Auto) 14.13 H (1.40-6.50) K/uL Lymph # (Auto) 1.09 L (1.2-3.4) K/uL Stark # (Auto) 0.67 H (0.11-0.59) K/uL Eos # (Auto) 0.02 (0-0.50) K/uL Baso # (Auto) 0.04 (0-0.2) K/uL Immature Gran # (Auto) 0.11 (0.01-0.20) K/uL POC Sodium (135-144) mmol/L Sodium 137 (136-145) mmol/L POC Potassium (3.3-5.0) mmol/L Potassium 3.1 L (3.5-5.1) mmol/L POC Chloride (101-112) mmol/L Chloride 103 (98-107) mmol/L Carbon Dioxide 24 (21-32) mmol/L POC Total CO2 (24-31) mmol/L Anion Gap 10 (3-11) POC Anion Gap (16-25) mmol/L POC BUN (7-18) mg/dl BUN 10 (6-23) mg/dl Creatinine 0.61 (0.6-1.2) mg/dl POC Creatinine (0.6-1.3) mg/dl Est Cr Clr Drug Dosing Not Reportable Est GFR ( Amer) 132.4 ml/min Est GFR (Non-Af Amer) 114.2 ml/min BUN/Creatinine Ratio 16.4 (10-20) Glucose 99 (70-99(Fasting)) mg/dl POC Glucose (other) (70-99) mg/dl Calcium 9.5 (8.6-10.3) mg/dl POC Ioniz Calcium Lidia (1.12-1.32) mmol/l Magnesium 1.6 L (1.7-2.4) mg/dl Total Bilirubin 0.7 (0.2-1.0) mg/dl Direct Bilirubin 0.2 (0-0.2) mg/dl AST 15 (13-39) U/L ALT 8 (7-52) U/L Alkaline Phosphatase 61 (34-104) U/L Troponin I High Sens 12.2 (0-14) pg/ml Total Protein 7.6 (6.0-8.3) gm/dl Albumin 4.1 (3.4-5.0) gm/dl Procalcitonin 0.28 (0-0.5) ng/ml SARS-CoV-2, RNA, NAAT (NEGATIVE) 06/01/22 06/01/22 Range/Units 17:07 18:00 WBC (4.8-10.8) K/ul RBC (4.20-5.40) M/uL Hgb (12.0-16.0) g/dl POC Hgb 12.9 (12.0-16.0) g/dl Hct (37.0-47.0) % POC Hct 38 (37-47) % MCV (80.0-100.0) fL MCH (25.0-34.0) pg MCHC (32.0-36.0) g/dL RDW Std Deviation (36.4-46.3) fL RDW Coeff of Clara (11.5-14.5) % Plt Count (130-400) K/uL MPV (9.4-12.4) fL Immature Gran % (Auto) % Neut % (Auto) % Lymph % (Auto) % Stark % (Auto) % Eos % (Auto) % Baso % (Auto) % Neut # (Auto) (1.40-6.50) K/uL Lymph # (Auto) (1.2-3.4) K/uL Stark # (Auto) (0.11-0.59) K/uL Eos # (Auto) (0-0.50) K/uL Baso # (Auto) (0-0.2) K/uL Immature Gran # (Auto) (0.01-0.20) K/uL POC Sodium 138 (135-144) mmol/L Sodium (136-145) mmol/L POC Potassium 3.2 L (3.3-5.0) mmol/L Potassium (3.5-5.1) mmol/L POC Chloride 102 (101-112) mmol/L Chloride (98-107) mmol/L Carbon Dioxide (21-32) mmol/L POC Total CO2 31 (24-31) mmol/L Anion Gap (3-11) POC Anion Gap 9.0 L (16-25) mmol/L POC BUN 8 (7-18) mg/dl BUN (6-23) mg/dl Creatinine (0.6-1.2) mg/dl POC Creatinine 0.6 (0.6-1.3) mg/dl Est Cr Clr Drug Dosing Est GFR ( Amer) ml/min Est GFR (Non-Af Amer) ml/min BUN/Creatinine Ratio (10-20) Glucose (70-99(Fasting)) mg/dl POC Glucose (other) 100 H (70-99) mg/dl Calcium (8.6-10.3) mg/dl POC Ioniz Calcium Lidia 1.04 L (1.12-1.32) mmol/l Magnesium (1.7-2.4) mg/dl Total Bilirubin (0.2-1.0) mg/dl Direct Bilirubin (0-0.2) mg/dl AST (13-39) U/L ALT (7-52) U/L Alkaline Phosphatase (34-104) U/L Troponin I High Sens (0-14) pg/ml Total Protein (6.0-8.3) gm/dl Albumin (3.4-5.0) gm/dl Procalcitonin (0-0.5) ng/ml SARS-CoV-2, RNA, NAAT NEGATIVE (NEGATIVE) Administered Medications Acetaminophen (Acetaminophen 325 Mg Tab) 650 mg PO Q4H PRN PRN Reason: pain or fever Stop: 07/02/22 15:19 Last Admin: 06/03/22 08:28 Dose: 650 mg Documented By: Admin: 06/02/22 20:15 Dose: 650 mg Documented By: Escitalopram Oxalate (Escitalopram Oxalate 20 Mg Tab) 20 mg PO DAILY [facility] Stop: 07/03/22 08:59 Last Admin: 06/03/22 08:25 Dose: 20 mg Documented By: RADHA Heparin Sodium (Porcine) (Heparin Sod 5,000 Unit/0.5 Ml Vial) 5,000 units SQ Q12 [facility] Stop: 07/03/22 08:59 Last Admin: 06/03/22 08:25 Dose: 5,000 units Documented By: RADHA Ampicillin Sodium/Sulbactam Sodium 3,000 mg/ Sodium Chloride 108 mls @ 200 mls/hr IV Q6H [facility]; Protocol Stop: 06/09/22 15:59 Last Infusion: 06/03/22 11:13 Dose: 0 mls/hr Documented By: Admin: 06/03/22 10:34 Dose: 200 mls/hr Documented By: Infusion: 06/03/22 03:46 Dose: 0 mls/hr Documented By: Admin: 06/03/22 03:08 Dose: 200 mls/hr Documented By: Infusion: 06/02/22 22:50 Dose: 0 mls/hr Documented By: Admin: 06/02/22 22:07 Dose: 200 mls/hr Documented By: Infusion: 06/02/22 16:19 Dose: 0 mls/hr Documented By: Admin: 06/02/22 15:43 Dose: 200 mls/hr Documented By: MIRA Ketorolac Tromethamine (Ketorolac Tromethamine 15 Mg/Ml Vial) 15 mg IV Q6H PRN PRN Reason: moderate to severe pain Stop: 06/07/22 15:19 Last Admin: 06/03/22 10:00 Dose: 15 mg Documented By: Admin: 06/03/22 03:55 Dose: 15 mg Documented By: Admin: 06/02/22 22:07 Dose: 15 mg Documented By: Admin: 06/02/22 15:47 Dose: 15 mg Documented By: MIRA Discontinued Medications Bupivacaine HCl (Bupivacaine/Epinephrine 0.5% 1:200,000 1.8 Ml Carp) Confirm Administered Dose 7.2 ml .ROUTE .STK-MED ONE Stop: 06/01/22 17:39 Last Admin: 06/01/22 19:06 Dose: 3 ml Documented By: MICHAEL Chlorhexidine Gluconate (Chlorhexidine Gluconate 0.12% 480 Ml) Confirm Administered Dose 480 ml MT .STK-MED ONE Stop: 06/01/22 17:39 Last Admin: 06/01/22 18:41 Dose: 30 ml Documented By: MICHAEL Dexamethasone (Dexamethasone Sod Inj 10 Mg/Ml 10 Ml Vial) 10 mg IV NOW ONE Stop: 06/01/22 17:16 Last Admin: 06/01/22 17:38 Dose: Not Given Documented By: RHINA Dexamethasone Sodium Phosphate (DexamethasonePf 10 Mg/Ml Vial) Confirm Administered Dose 10 mg .ROUTE .STK-MED ONE Stop: 06/01/22 17:01 Last Admin: 06/01/22 17:01 Dose: 10 mg Documented By: RHINA Fentanyl Citrate (Fentanyl Citrate Pf 100 Mcg/2 Ml Vial) Confirm Administered Dose 100 mcg .ROUTE .STK-MED ONE Stop: 06/01/22 17:09 Last Increment: 06/01/22 17:09 Dose: 50 mcg Documented By: RHINA Fentanyl Citrate (Fentanyl Citrate 2,500 Mcg/250 Ml Bag) Confirm Administered Dose 2,500 mcg IV .STK-MED ONE Stop: 06/01/22 19:32 Last Admin: 06/01/22 20:55 Dose: Not Given Documented By: PITA Piperacillin Sod/Tazobactam Sod (Zosyn) 4.5 gm in 120 mls @ 240 mls/hr IV NOW ONE Stop: 06/01/22 17:44 Last Admin: 06/01/22 17:39 Dose: Not Given Documented By: RHINA Pantoprazole Sodium 40 mg/ (Syringe) 10 mls @ 5 mls/min IV NOW ONE Stop: 06/01/22 17:16 Last Admin: 06/01/22 17:30 Dose: 5 mls/min Documented By: RHINA Vancomycin HCl 1,250 mg/ (Sodium Chloride) 275 mls @ 200 mls/hr IV NOW ONE; Protocol Stop: 06/01/22 18:52 Last Admin: 06/01/22 22:59 Dose: Not Given Documented By: PITA Magnesium Sulfate/Dextrose (Magnesium Sulfate / D5w) 1 gm in 100 mls @ 50 mls/hr IV Q2H [facility] Stop: 06/02/22 00:59 Last Infusion: 06/02/22 02:58 Dose: 0 mls/hr Documented By: Admin: 06/02/22 01:00 Dose: 50 mls/hr Documented By: Infusion: 06/02/22 00:38 Dose: 50 mls/hr Documented By: Admin: 06/01/22 22:38 Dose: 50 mls/hr Documented By: Infusion: 06/01/22 22:38 Dose: 50 mls/hr Documented By: Admin: 06/01/22 21:08 Dose: 50 mls/hr Documented By: TG Potassium Chloride (K Will / Wtr) 10 meq in 100 mls @ 100 mls/hr IV Q1H [facility] Stop: 06/01/22 22:59 Last Infusion: 06/02/22 02:02 Dose: 0 mls/hr Documented By: Admin: 06/02/22 00:20 Dose: 100 mls/hr Documented By: Infusion: 06/02/22 00:11 Dose: 100 mls/hr Documented By: Admin: 06/01/22 23:11 Dose: 100 mls/hr Documented By: Infusion: 06/01/22 23:10 Dose: 100 mls/hr Documented By: Admin: 06/01/22 22:10 Dose: 100 mls/hr Documented By: Infusion: 06/01/22 22:08 Dose: 100 mls/hr Documented By: Admin: 06/01/22 21:08 Dose: 100 mls/hr Documented By: TG Fentanyl Citrate (Fentanyl Citrate) 2,500 mcg in 250 mls @ 12.5 mls/hr IV .Q20H [facility]; Protocol Stop: 06/15/22 19:44 Last Titration: 06/02/22 09:01 Dose: 0 mcg/hr, 0 mls/hr Documented By: LAF Co-signed By: WRS Titration: 06/02/22 05:14 Dose: 125 mcg/hr, 12.5 mls/hr Documented By: TG Co-signed By: ELS Titration: 06/02/22 00:00 Dose: 100 mcg/hr, 10 mls/hr Documented By: TG Co-signed By: BRA Titration: 06/01/22 23:00 Dose: 75 mcg/hr, 7.5 mls/hr Documented By: TG Co-signed By: BRA Titration: 06/01/22 22:00 Dose: 50 mcg/hr, 5 mls/hr Documented By: PITA Co-signed By: BAR Admin: 06/01/22 20:55 Dose: 25 mcg/hr, 2.5 mls/hr Documented By: TG Co-signed By: TACHO Piperacillin Sod/Tazobactam (Sod 3.375 gm/ Dextrose) 115 mls @ 28.75 mls/hr IV Q8H [facility]; Protocol Stop: 06/08/22 21:59 Last Infusion: 06/02/22 16:37 Dose: 0 mls/hr Documented By: Admin: 06/02/22 13:02 Dose: 28.8 mls/hr Documented By: Infusion: 06/02/22 09:04 Dose: 0 mls/hr Documented By: Admin: 06/02/22 05:14 Dose: 28.8 mls/hr Documented By: Infusion: 06/02/22 02:57 Dose: 0 mls/hr Documented By: Admin: 06/01/22 22:39 Dose: 28.8 mls/hr Documented By: IPTA Calcium Gluconate 1,000 mg/ (Dextrose) 60 mls @ 240 mls/hr IV NOW ONE Stop: 06/01/22 20:13 Last Infusion: 06/01/22 21:16 Dose: 0 mls/hr Documented By: Admin: 06/01/22 20:56 Dose: 240 mls/hr Documented By: PITA Propofol (Diprivan) 1,000 mg in 100 mls @ 18.198 mls/hr IV .Q5H30M [facility]; Protocol Stop: 06/04/22 20:59 Last Titration: 06/02/22 09:00 Dose: 0 mcg/kg/min, 0 mls/hr Documented By: Titration: 06/02/22 05:14 Dose: 45 mcg/kg/min, 18.2 mls/hr Documented By: PITA Co-signed By: MELLY Admin: 06/02/22 05:14 Dose: 45 mcg/kg/min, 18.2 mls/hr Documented By: PITA Co-signed By: MELLY Titration: 06/02/22 02:30 Dose: 45 mcg/kg/min, 18.2 mls/hr Documented By: Admin: 06/02/22 01:04 Dose: 50 mcg/kg/min, 20.2 mls/hr Documented By: TG Co-signed By: ELS Titration: 06/02/22 01:04 Dose: 50 mcg/kg/min, 20.2 mls/hr Documented By: TG Co-signed By: ELS Titration: 06/02/22 00:00 Dose: 50 mcg/kg/min, 20.2 mls/hr Documented By: TG Co-signed By: ELS Titration: 06/01/22 23:30 Dose: 45 mcg/kg/min, 18.2 mls/hr Documented By: TG Co-signed By: ELS Titration: 06/01/22 23:00 Dose: 40 mcg/kg/min, 16.2 mls/hr Documented By: TG Co-signed By: ELS Titration: 06/01/22 21:30 Dose: 35 mcg/kg/min, 14.2 mls/hr Documented By: TG Co-signed By: ELS Titration: 06/01/22 21:00 Dose: 30 mcg/kg/min, 12.1 mls/hr Documented By: TG Co-signed By: ELS Titration: 06/01/22 20:40 Dose: 25 mcg/kg/min, 10.1 mls/hr Documented By: TG Co-signed By: ELS Admin: 06/01/22 20:30 Dose: 20 mcg/kg/min, 8.1 mls/hr Documented By: TG Co-signed By: TACHO Sodium Chloride (Nss) 500 mls @ 5 mls/hr IV .Q24H [facility] Stop: 07/01/22 21:29 Last Admin: 06/02/22 02:59 Dose: Not Given Documented By: TG Potassium Chloride (K Will / Wtr) 10 meq in 100 mls @ 100 mls/hr IV Q1H [facility] Stop: 06/02/22 10:59 Last Infusion: 06/02/22 13:00 Dose: 0 mls/hr Documented By: Admin: 06/02/22 11:42 Dose: 100 mls/hr Documented By: Infusion: 06/02/22 10:04 Dose: 100 mls/hr Documented By: Admin: 06/02/22 09:04 Dose: 100 mls/hr Documented By: Infusion: 06/02/22 09:00 Dose: 100 mls/hr Documented By: Admin: 06/02/22 08:00 Dose: 100 mls/hr Documented By: Infusion: 06/02/22 07:52 Dose: 100 mls/hr Documented By: Admin: 06/02/22 06:52 Dose: 100 mls/hr Documented By: PITA Vancomycin HCl 1,250 mg/ (Sodium Chloride) 275 mls @ 200 mls/hr IV NOW ONE; Protocol Stop: 06/02/22 11:52 Last Infusion: 06/02/22 13:01 Dose: 0 mls/hr Documented By: Admin: 06/02/22 11:00 Dose: 200 mls/hr Documented By: MIRA Ioversol (Optiray 350 100ml) 88 ml IV ONCE ONE Stop: 06/01/22 17:25 Last Admin: 06/01/22 17:23 Dose: 88 ml Documented By: LEIGH Patel (Rapid Sequence Induction Bag) Confirm Administered Dose 1 each N/A .STK-MED ONE Stop: 06/01/22 17:00 Last Admin: 06/01/22 20:56 Dose: Not Given Documented By: PITA Patel (Icu Electrolyte Replacement Protocol) 1 each N/A BID@06,18 [facility]; Protocol Stop: 06/09/22 05:59 Last Admin: 06/02/22 06:47 Dose: 1 each Documented By: PITA Patel (Icu Protocol For Hyperglycemia) 1 each N/A ACHS [facility] Stop: 06/03/22 20:59 Last Admin: 06/02/22 13:00 Dose: 1 each Documented By: Admin: 06/02/22 08:56 Dose: 1 each Documented By: Admin: 06/01/22 21:09 Dose: Not Given Documented By: PITA Piperacillin Sod/Tazobactam Sod (Piperacillin/Tazobactam 4.5 Gm/120ml D5w) Confirm Administered Dose 4.5 gm IV .STK-MED ONE Stop: 06/01/22 17:09 Last Admin: 06/01/22 17:10 Dose: 4.5 gm Documented By: RHINA Propofol (Propofol Iv Emulsion 10 Mg/Ml 100 Ml Vial) Confirm Administered Dose 1,000 mg IV .STK-MED ONE Stop: 06/01/22 20:50 Last Admin: 06/01/22 21:09 Dose: Not Given Documented By: TG Imaging Data Radiologist's Impression: Soft Tissue Neck CT 06/01/22 17:17 CT soft tissue neck w con HISTORY: 41 years-old Female eval airway and abscess follow-up study in a patient with prior left-sided facial surgery with drainage COMPARISON: None TECHNIQUE: Multiple axial CT images of the soft tissues of the neck were obtained following the intravenous administration of 88 mL Optiray 350. A dose lowering technique was used consistent with the principals of ALARA. FINDINGS: The imaged intracranial structures are unremarkable. Orbits are within normal li mits. Patent airway. The glottis is within normal limits. Unremarkable thyroid and submandibular glands. There is asymmetric enlargement and enhancement of the left sublingual gland. Mildly prominent subcentimeter left cervical chain and 70 lymph nodes measuring up to 8 mm are likely reactive. There is asymmetric enlargement with heterogeneous enhancement involving the le ft masseter with multilocular intramuscular abscess measuring up to 3.5 cm in cranial caudal dimension and 2.9 cm in AP dimension. Edema extends into the adjacent parotid gland and subcutaneous tissues of the left face and cheek tracking along the platysma and anterior upper chest. Subpleural bulla of the lung apices. Mastoid air cells and paranasal sinuses are clear. There is a 3 cm catheter present within the left cheek. Numerous dental caries are noted along with missing teeth. No osseous erosive changes. No large periapical cysts. IMPRESSION: 1. 8 3 cm catheter is present within the left oral cavity. 2. Moderate left facial inflammatory changes with multilocular intramuscular abscess within the masseter muscle measuring up to approximately 4 cm. 3. Multifocal odontogenic disease. ACT 112: Negative or not required by law. The above report was generated using voice recognition software. It may contain grammatical, syntax or spelling errors. Electronically signed by: Julio Esteban M.D. 06/01/2022 5:43 PM Discharge Plan Visit Data Chief Complaint: Respiratory Distress Stated Complaint: SOB,LOCKED JAW,HARD TIME BREATHING ED Provider: Ashley Valerio Discharge Problem: Ted's angina, Mandibular abscess Patient Disposition: Admitted As Inpatient Discharge Instructions Interventions: ED Discharge Assessment Last Done: 06/01/22 17:15
[2022-06-02 04:14] LABS: iSTAT Art Bld Gas pCO2 Correct 34 mmHg (35-46); iSTAT Art Bld Gas pH Corrected 7.431 (7.35-7.45); iSTAT Arterial Blood Gas HCO3 22 meg/L (19-24); iSTAT Arterial Blood Gas pCO2 34 mmHg (35-46); iSTAT Arterial Blood Gas pH 7.43 (7.35-7.45); iSTAT Arterial Blood Gas pO2 103 mmHg (80-95); iSTAT Arterial Blood Gas pO2 C 101; iSTAT Carbon Dioxide 23 mmol/L (24-31); iSTAT FiO2 30 %; iSTAT Hematocrit 29 % (37-47); iSTAT Hemoglobin 9.9 g/dl (12.0-16.0); iSTAT Potassium 3.8 mmol/L (3.3-5.0); iSTAT Site L Radial; iSTAT Sodium 139 mmol/L (135-144)
[2022-06-02] MEDS: PIPERACILLIN/TAZOBACTAM 3.375 GM in DEXTROSE 5% 100 ML IV SCH ×2 (05:14→13:02)
[2022-06-02] MEDS ORDERED: ICU ELECTROLYTE REPLACEMENT PROTOCOL SCH (06:00)
[2022-06-02 06:09] LABS: Basophils # (auto) 0.02 K/uL (0-0.2); Basophils % (auto) 0.2 %; Hematocrit (blood only) 28.9 % (37.0-47.0); Immature Granulocytes # (auto) 0.07 K/uL (0.01-0.20); Immature Granulocytes % (auto) 0.6 %; Lymphocytes # (auto) 0.67 K/uL (1.2-3.4); Lymphocytes % (auto) 6.2 %; Mean Corpuscular Hgb Conc 34.6 g/dL (32.0-36.0); Mean Corpuscular Volume 95.4 fL (80.0-100.0); Mean Platelet Volume 9.9 fL (9.4-12.4); Monocytes # (auto) 0.44 K/uL (0.11-0.59); Monocytes % (auto) 4.1 %; Neutrophils # (auto) 9.66 K/uL (1.40-6.50); Neutrophils % (auto) 88.9 %; Platelet Count 234 K/uL (130-400); RDW Coefficient of Variation 13.2 % (11.5-14.5); RDW Standard Deviation 46.1 fL (36.4-46.3); Red Blood Count 3.03 M/uL (4.20-5.40); White Blood Count 10.86 K/ul (4.8-10.8)
[2022-06-02 06:30] LABS: Calcium 8.4 mg/dl (8.6-10.3); Creatinine Clr Calc Pharmacy 146.9 ml/min; Est GFR (African American) 141.3 ml/min; Est GFR (Non-African American) 121.9 ml/min; Magnesium 2.5 mg/dl (1.7-2.4); Potassium 3.9 mmol/L (3.5-5.1)
--- NOTE | 2022-06-02 08:05 | XRay Report ---
XR chest 1V portable HISTORY: 41 years-old Female OG tube acute respiratory failure COMPARISON: CT soft tissue neck of same day TECHNIQUE: AP view of the chest FINDINGS: Endotracheal tube overlies the midline, 2.1 m superior to the hellen. Enteric tube courses below the diaphragm into the stomach with distal tip outside the [id number]. No pneumothorax, large pleural effusion, airspace consolidation or pulmonary edema. Bones of the chest appear grossly intact. IMPRESSION: 1. Endotracheal and enteric tube placement as above. 2. The lungs appear clear. 3. No pneumothorax. ACT 112: Negative or not required by law. The above report was generated using voice recognition software. It may contain grammatical, syntax o r spelling errors. Electronically signed by: Julio Esteban M.D. 06/02/2022 8:03 AM
[2022-06-02] MEDS: ICU Protocol for HYPERglycemia SCH ×2 (08:56→13:00)
[2022-06-02] MEDS ORDERED: VANCOMYCIN CONSULT ACTIVE PRN (10:14)
--- NOTE | 2022-06-02 10:23 | Critical Care Progress Note ---
Date of Service June 02, 2022 Assessment & Plan (1) Ludwigs angina: (2) Mandibular abscess: (3) Endotracheally intubated: Plan Patient extubated. Continue vancomycin and Zosyn. Follow cultures from submandibular abscess. Maxillofacial surgeon to follow-up with the patient lat er today. Patient stable for downgrade out of the ICU. ICU team to sign off. Thank you for the consult. Admission and Anticipated Discharge Date Admission Date: June 01, 2022 Subjective Patient seen and examined. She was successfully extubated. Doing well with no significant issues. Review of Systems Review of Systems: All systems reviewed & are unremarkable except as noted in HPI & below Physical Exam Physical Exam: Constitutional: No apparent distress. Eyes: Pupils are equal round and reactive to light. Conjunctivae are normal. Anicteric sclera. Ears nose, mouth and throat: Bandaging and drain in place. Neck: Trachea is midline. Visual inspection is normal. Respiratory: Clear to auscultation bilaterally. No use of accessory muscles. No significant clubbing noted. Cardiovascular: Regular rate and rhythm. No murmurs. No edema. Gastrointestinal: Normal bowel sounds, soft, nontender and nondistended. No hepatosplenomegaly noted. Musculoskeletal: No cyanosis. Patient is able to move all extremities. Strength is 5 out of 5 in the upper and lower extremities. Skin: No rashes, warm dry and intact. Neurologic: No obvious focal neurological deficits seen. Psychiatric: Mildly anxious. Alert and oriented x3. Results & Data Results & Data Vital Signs (Past 12 Hours) Vital Signs Temp Pulse Resp BP Pulse Ox O2 Del Method FiO2 06/02/22 09:43 Room Air 06/02/22 07:00 66 17 99 30 06/02/22 08:17 36.9 C 77 16 96 Room Air 06/02/22 08:17 121/92 06/02/22 08:00 36.9 C 77 14 98 BiPAP 06/02/22 08:00 107/73 06/02/22 07:00 36.8 C 67 14 99 Mechanical Vent 06/02/22 07:00 105/69 06/02/22 07:12 63 06/02/22 06:00 36.8 C 62 14 91/55 L 98 Mechanical Vent 06/02/22 05:17 36.7 C 72 16 102/65 99 Mechanical Vent 30 06/02/22 05:00 36.7 C 65 14 97/59 L 99 30 06/02/22 04:01 36.6 C 69 12 103/61 99 Mechanical Vent 30 06/02/22 04:00 30 06/02/22 03:59 73 15 99 30 06/02/22 03:00 36.6 C 63 14 93/61 L 98 Mechanical Vent 30 06/02/22 02:52 36.6 C 67 12 100/70 99 06/02/22 02:30 36.5 C 63 14 91/59 L 98 06/02/22 02:26 36.5 C 64 14 88/59 L 98 06/02/22 02:00 36.5 C 65 14 85/57 L 98 Mechanical Vent 30 06/02/22 01:30 36.6 C 67 14 90/61 L 98 06/02/22 01:00 36.5 C 66 14 94/66 L 97 06/02/22 00:30 36.6 C 68 14 93/67 L 97 06/02/22 00:00 36.6 C 70 14 110/78 99 Mechanical Vent 30 06/01/22 23:30 36.6 C 73 14 100/67 99 06/02/22 00:00 30 06/02/22 00:00 73 06/01/22 23:21 15 30 06/01/22 23:00 36.7 C 68 14 92/66 L 97 Mechanical Vent 40 06/01/22 22:30 36.9 C 71 15 113/76 99 Coding Level of Care Code 35250 SUB INP/OBS CARE /25MIN Diagnoses Ludwigs angina K12.2 Mandibular abscess M27.2 Endotracheally intubated Z97.8
--- NOTE | 2022-06-02 10:29 | Pharmacy Report ---
Pharmacy PK ABX Note - Date of Service June 02, 2022 - Assessment and Plan Assessment * 41 year old F receiving Zosyn and vancomycin for treatment of Ted's angina / mandibular abscess s/p I&D w tooth extraction. * Pertinent microbiologic data includes: blood and face cultures pending * Discussed on ICU rounds - anticipate no longer than 48 hour course of vancomycin, unless facial culture indicates need to continue Plan Vancomycin * Loading dose: 1250 mg IV x 1 * Maintenance dose: 1250 mg IV every 12 hours * Regimen is predicted to achieve target AUC/SAM of 400-600 mg/L.hr * No level necessary unless course continues past 48 hours Pharmacy will continue to follow and will adjust dose/frequency as necessary. Thank you. Pharmacy has transitioned to AUC monitoring for vancomycin. AUC/SAM is the preferred PK/PD target and is associated with decreased risk of nephrotoxicity compared to traditional trough targets.
[2022-06-02] MEDS ORDERED: VANCOMYCIN HCL 1,250 MG in SODIUM CHLORIDE 0.9% 250 ML IV ONE (10:30)
--- NOTE | 2022-06-02 12:48 | Electrocardiogram Report ---
Test Reason : Blood Pressure : / mmHG Vent. Rate : 098 BPM Atrial Rate : 098 BPM P-R Int : 116 ms QRS Dur : 076 ms QT Int : 354 ms P-R-T Axes : 066 052 032 degrees QTc Int : 451 ms Normal sinus rhythm Nonspecific ST abnormality Abnormal ECG No previous ECGs available Confirmed by Mario Garcia ([id number]) on 06/02/2022 12:47:49 PM Referred By: REFERRED SELF Confirmed By:Mario Garcia
--- NOTE | 2022-06-02 13:02 | Electrocardiogram Report ---
Test Reason : Blood Pressure : / mmHG Vent. Rate : 072 BPM Atrial Rate : 072 BPM P-R Int : 116 ms QRS Dur : 080 ms QT Int : 404 ms P-R-T Axes : 002 046 016 degrees QTc Int : 442 ms Normal sinus rhythm Normal ECG When compared with ECG of 01-JUN-2022 17:14, (unconfirmed) No significant change was found Confirmed by Mario Garcia ([id number]) on 06/02/2022 1:02:06 PM Referred By: REFERRED SELF Confirmed By:Mario Garcia
--- NOTE | 2022-06-02 15:20 | Hospitalist Progress Note ---
Date of Service June 02, 2022 Assessment & Plan (1) Ludwigs angina: (2) Mandibular abscess: (3) Abscess of pulp of tooth: (4) Carious teeth: (5) Endotracheally intubated: Plan Mandibular abscess with carious teeth 06/01 Status post I&D of left facial abscess with with teeth extraction by Dr. Garcia EBL 10 mL Successfully extubated today, patient with better pain control. Will downgrade to MedSurg Patient is started on clear liquid diet, Dr. Garcia to follow. We will de-escalate from Zosyn to IV Unasyn. Since MRSA negative, can discontinue vancomycin. Continue pain management. Intraoperative cultures pending Blood cultures pending Hypokalemia Hypomagnesemia Monitor and replete as appropriate. Chronic medical problems include: Tobacco abuse allergic to nicotine patch, depression, GERD and history of peptic ulcer disease -continue home meds as able DVT Ppx: SCDS Dispo: Downgrade to MedSur PCP: Katie Chase - out of [place] FULL CODE Admission and Anticipated Discharge Date Admission Date: June 01, 2022 Subjective Patient seen and examined at bedside as a follow-up of Ted's angina, carious teeth and abscess of pulp of tooth. Patient was lying in bed, on room air, NAD, was successfully extubated in the morning today, improving erythema and swelling of her left cheek. Patient reports some pain at left cheek, looks overall improved. Patient denies headache or dizziness, chest pain or sore throat. Physical Exam Physical Exam: GENERAL: Alert and oriented x3. NAD, on RA. HEENT: No pallor, no icterus. Pupils equal, round and reactive to light. Oral mucosa moist. Left buccal mucosa w/ aleshia drain visualized. Left cheek w/ swelling/tenderness w/ clean dressing w/o soakage. NECK: No JVD, no neck masses. HEART: S1 and S2 heard. Regular rate and rhythm. No murmur, no gallop. RESPIRATORY SYSTEM: Normal AP diameter. No accessory muscle use. No wheezing, no crackles. ABDOMEN: Soft, bowel sounds present, nontender, no distention. CENTRAL NERVOUS SYSTEM: No facial droop. Speech is clear. Obeys simple commands. Moves extremities. EXTREMITIES: No edema, no erythema seen. has body tattoos Results & Data Results & Data Vital Signs (Past 12 Hours) Vital Signs Temp Pulse Resp BP Pulse Ox O2 Del Method FiO2 06/02/22 14:00 37.3 C 74 18 Room Air 06/02/22 14:00 129/76 06/02/22 13:00 37.3 C 77 20 06/02/22 13:00 120/78 06/02/22 12:00 37.3 C 83 24 06/02/22 12:00 132/86 06/02/22 11:00 37.3 C 73 19 98 Room Air 06/02/22 11:00 123/78 06/02/22 12:15 81 06/02/22 10:00 37.0 C 96 H 19 98 Room Air 06/02/22 10:00 129/87 06/02/22 09:00 37.1 C 72 14 99 Room Air 06/02/22 09:43 Room Air 06/02/22 07:00 66 17 99 30 06/02/22 08:17 36.9 C 77 16 96 Room Air 06/02/22 08:17 121/92 06/02/22 08:00 36.9 C 77 14 98 BiPAP 06/02/22 08:00 107/73 06/02/22 07:00 36.8 C 67 14 99 Mechanical Vent 06/02/22 07:00 105/69 06/02/22 07:12 63 06/02/22 06:00 36.8 C 62 14 91/55 L 98 Mechanical Vent 30 06/02/22 05:17 36.7 C 72 16 102/65 99 Mechanical Vent 30 06/02/22 05:00 36.7 C 65 14 97/59 L 99 30 06/02/22 04:01 36.6 C 69 12 103/61 99 Mechanical Vent 30 06/02/22 04:00 30 06/02/22 03:59 73 15 99 30
[2022-06-02] MEDS: AMPICILLIN/SULBACTAM SOD 3,000 MG in 0.9 % SODIUM CHLORIDE 100 ML IV SCH ×2 (15:43→22:07)
[2022-06-02] MEDS: KETOROLAC TROMETHAMINE 15 MG/ML VIAL IV PRN ×2 (15:47→22:07)
--- NOTE | 2022-06-02 19:23 | Oral/Maxillofacial Progress Nt ---
Date of Service June 02, 2022 Assessment & Plan Admission and Anticipated Discharge Date Admission Date: June 01, 2022 Subjective Post Op infection evaluation at 24 hours The infected area is less red and swollen. able to talk better as well as swallow. Swelling has decreased and is much softer Minimal drainage is noted. Drain will be removed in a few days Cultures were reviewed. Infection has responded very well to the antibiotics, extractions and the I and D. I requested that the patient continue with massage, heat and wound care. At this time the area is responding well From an oral surgery point of view she may be discharged tomorrow if OK by medicine. I reviewed her post op care--heat, massage, oral care and follow up with me. I suggest an oral antibiotic for 10 days and pain Meds as needed. Results & Data Vital Signs (Past 12 Hours) Vital Signs Temp Pulse Pulse Resp BP BP Pulse Ox 06/02/22 17:01 37.4 C 06/02/22 17:00 37.4 C 82 20 06/02/22 16:00 37.3 C 85 17 06/02/22 16:00 124/85 06/02/22 15:00 37.2 C 74 19 06/02/22 15:00 117/75 06/02/22 17:18 36.4 C L 78 18 126/81 97 06/02/22 14:00 37.3 C 74 18 06/02/22 14:00 129/76 06/02/22 13:00 37.3 C 77 20 06/02/22 13:00 120/78 06/02/22 12:00 37.3 C 83 24 06/02/22 12:00 132/86 06/02/22 11:00 37.3 C 73 19 98 06/02/22 11:00 123/78 06/02/22 12:15 81 06/02/22 10:00 37.0 C 96 H 19 98 06/02/22 10:00 129/87 06/02/22 09:00 37.1 C 72 14 99 06/02/22 09:43 06/02/22 08:17 36.9 C 77 16 96 06/02/22 08:17 121/92 06/02/22 08:00 36.9 C 77 14 98 06/02/22 08:00 107/73 O2 Del Method 06/02/22 17:01 06/02/22 17:00 06/02/22 16:00 06/02/22 16:00 06/02/22 15:00 06/02/22 15:00 06/02/22 17:18 Room Air 06/02/22 14:00 Room Air 06/02/22 14:00 06/02/22 13:00 06/02/22 13:00 06/02/22 12:00 06/02/22 12:00 06/02/22 11:00 Room Air 06/02/22 11:00 06/02/22 12:15 06/02/22 10:00 Room Air 06/02/22 10:00 06/02/22 09:00 Room Air 06/02/22 09:43 Room Air 06/02/22 08:17 Room Air 06/02/22 08:17 06/02/22 08:00 BiPAP 06/02/22 08:00 PG Care Time/CCT Total # of Minutes Spent Total Time Spent with Patient: Total time spent is greater than 50% in coordination of care (as documented) at patient's floor/unit and/or counseling patient: Coding Level of Care Code 14936 SUB INP/OBS CARE 1/25MIN Diagnoses
[2022-06-02] MEDS: ACETAMINOPHEN 325 MG TAB PO PRN (20:15)
[2022-06-02] MEDS ORDERED: HEPARIN SOD 5,000 UNIT/0.5 ML VIAL SQ SCH (21:00)
[2022-06-02] MEDS ORDERED: VANCOMYCIN HCL 1,250 MG in SODIUM CHLORIDE 0.9% 250 ML IV SCH (22:00)
[2022-06-03] MEDS: AMPICILLIN/SULBACTAM SOD 3,000 MG in 0.9 % SODIUM CHLORIDE 100 ML IV SCH ×4 (03:08→22:19)
[2022-06-03] MEDS: KETOROLAC TROMETHAMINE 15 MG/ML VIAL IV PRN ×3 (03:55→16:32)
[2022-06-03] MEDS: HEPARIN SOD 5,000 UNIT/0.5 ML VIAL SQ SCH ×2 (08:25→20:02)
[2022-06-03] MEDS: ESCITALOPRAM OXALATE 20 MG TAB PO SCH (08:25)
[2022-06-03] MEDS: ACETAMINOPHEN 325 MG TAB PO PRN ×3 (08:28→20:07)
[2022-06-03 08:33] LABS: Basophils # (auto) 0.03 K/uL (0-0.2); Basophils % (auto) 0.4 %; Eosinophils # (auto) 0.05 K/uL (0-0.50); Eosinophils % (auto) 0.7 %; Hematocrit (blood only) 27.5 % (37.0-47.0); Hemoglobin 9.5 g/dl (12.0-16.0); Immature Granulocytes # (auto) 0.02 K/uL (0.01-0.20); Immature Granulocytes % (auto) 0.3 %; Lymphocytes # (auto) 2.56 K/uL (1.2-3.4); Lymphocytes % (auto) 33.6 %; Mean Corpuscular Hemoglobin 32.6 pg (25.0-34.0); Mean Corpuscular Hgb Conc 34.5 g/dL (32.0-36.0); Mean Corpuscular Volume 94.5 fL (80.0-100.0); Mean Platelet Volume 9.8 fL (9.4-12.4); Monocytes # (auto) 0.49 K/uL (0.11-0.59); Monocytes % (auto) 6.4 %; Neutrophils # (auto) 4.47 K/uL (1.40-6.50); Neutrophils % (auto) 58.6 %; Platelet Count 258 K/uL (130-400); RDW Coefficient of Variation 13.3 % (11.5-14.5); RDW Standard Deviation 46.5 fL (36.4-46.3); Red Blood Count 2.91 M/uL (4.20-5.40); White Blood Count 7.62 K/ul (4.8-10.8)
[2022-06-03 09:20] LABS: Creatinine Clr Calc Pharmacy 151.8 ml/min; Est GFR (African American) 143.2 ml/min; Est GFR (Non-African American) 123.6 ml/min; Magnesium 1.7 mg/dl (1.7-2.4); Phosphorus 2.4 mg/dl (2.5-4.9); Potassium 3.3 mmol/L (3.5-5.1)
--- NOTE | 2022-06-03 14:59 | Hospitalist Progress Note ---
Date of Service June 03, 2022 Assessment & Plan (1) Ludwigs angina: (2) Mandibular abscess: (3) Abscess of pulp of tooth: (4) Carious teeth: (5) Endotracheally intubated: Plan Mandibular abscess with carious teeth 06/01 Status post I&D of left facial abscess with with teeth extraction by Dr. Garcia EBL 10 mL Was initially intubated; extubated on 06/02 Patient is started on clear liquid diet, will advance as tolerated Blood cultureno growth in 24 hours Wound culture -awaiting culture results Continue Unasyn Advance diet as tolerated Follow-up with oral surgery tomorrow at 4:30 PM. Hypokalemia Hypomagnesemia Monitor and replete as appropriate. Chronic medical problems include: Tobacco abuse allergic to nicotine patch, depression, GERD and history of peptic ulcer disease -continue home meds as able DVT Ppx: SCDS Dispo: Downgrade to MedSur PCP: Katie Chase - out of [place] FULL CODE Dispopatient continues to remain hospitalized after surgery for left facial abscess for IV antibiotics, pain control and frequent dressing changes. Admission and Anticipated Discharge Date Admission Date: June 01, 2022 Subjective Patient seen and examined at bedside. She reports pain at the site of the surgery. She has been requiring frequent dressing changes. She is tolerating liquid diet. Review of Systems Review of Systems: All systems reviewed & are unremarkable except as noted in Subjective Physical Exam Physical Exam: GENERAL: Alert and oriented x3. NAD, on RA. HEENT: No pallor, no icterus. Pupils equal, round and reactive to light. Oral mucosa moist. . Left cheek w/ swelling/tenderness w/ clean dressing w/o soakage. NECK: No JVD, no neck masses. HEART: S1 and S2 heard. Regular rate and rhythm. No murmur, no gallop. RESPIRATORY SYSTEM: Normal AP diameter. No accessory muscle use. No wheezing, no crackles. ABDOMEN: Soft, bowel sounds present, nontender, no distention. CENTRAL NERVOUS SYSTEM: No facial droop. Speech is clear. Obeys simple commands. Moves extremities. EXTREMITIES: No edema, no erythema seen. has body tattoos Results & Data Results & Data Vital Signs (Past 12 Hours) Vital Signs Temp Pulse Pulse Resp BP BP Pulse Ox 06/03/22 12:44 36.9 C 78 65 16 133/91 117/75 98 06/03/22 07:39 36.9 C 65 16 117/75 98 O2 Del Method 06/03/22 12:44 06/03/22 07:39 Room Air Laboratory Results Laboratory Results WBC 7.62 K/ul (4.8-10.8) 06/03/22 07:42 RBC 2.91 M/uL (4.20-5.40) L 06/03/22 07:42 Hgb 9.5 g/dl (12.0-16.0) L 06/03/22 07:42 POC Hgb 9.9 g/dl (12.0-16.0) L 06/02/22 03:59 Hct 27.5 % (37.0-47.0) L 06/03/22 07:42 POC Hct 29 % (37-47) L 06/02/22 03:59 MCV 94.5 fL (80.0-100.0) 06/03/22 07:42 MCH 32.6 pg (25.0-34.0) 06/03/22 07:42 MCHC 34.5 g/dL (32.0-36.0) 06/03/22 07:42 RDW Std Deviation 46.5 fL (36.4-46.3) H 06/03/22 07:42 RDW Coeff of Clara 13.3 % (11.5-14.5) 06/03/22 07:42 Plt Count 258 K/uL (130-400) 06/03/22 07:42 MPV 9.8 fL (9.4-12.4) 06/03/22 07:42 Immature Gran % (Auto) 0.3 % 06/03/22 07:42 Neut % (Auto) 58.6 % 06/03/22 07:42 Lymph % (Auto) 33.6 % 06/03/22 07:42 Baldwin % (Auto) 6.4 % 06/03/22 07:42 Eos % (Auto) 0.7 % 06/03/22 07:42 Baso % (Auto) 0.4 % 06/03/22 07:42 Neut # (Auto) 4.47 K/uL (1.40-6.50) 06/03/22 07:42 Lymph # (Auto) 2.56 K/uL (1.2-3.4) 06/03/22 07:42 Baldwin # (Auto) 0.49 K/uL (0.11-0.59) 06/03/22 07:42 Eos # (Auto) 0.05 K/uL (0-0.50) 06/03/22 07:42 Baso # (Auto) 0.03 K/uL (0-0.2) 06/03/22 07:42 Immature Gran # (Auto) 0.02 K/uL (0.01-0.20) 06/03/22 07:42 Sample Site L Radial 06/02/22 03:59 POC pH 7.43 (7.35-7.45) 06/02/22 03:59 POC pCO2 34 mmHg (35-46) L 06/02/22 03:59 POC pO2 103 mmHg (80-95) H 06/02/22 03:59 POC HCO3 22 jose antonio/L (19-24) 06/02/22 03:59 POC Total CO2 23 mmol/L (24-31) L 06/02/22 03:59 POC Base Excess -2.0 jose antonio/L (-9-1.8) 06/02/22 03:59 ABG pH (Temp Correct) 7.431 (7.35-7.45) 06/02/22 03:59 ABG pCO2 (Temp Corrct 34 mmHg (35-46) L 06/02/22 03:59 POC ABG pO2 at Pt Temp 101 06/02/22 03:59 POC ABG O2 Sat 98.0 % (90-95) H 06/02/22 03:59 Albaro Test NA 06/02/22 03:59 O2 Delivery Device Ventilator 06/02/22 03:59 POC O2 Rate 14 06/02/22 03:59 POC FiO2 30 % 06/02/22 03:59 Tidal Volume 400 06/02/22 03:59 PEEP 5 06/02/22 03:59 POC Sodium 139 mmol/L (135-144) 06/02/22 03:59 Sodium 141 mmol/L (136-145) 06/03/22 07:42 POC Potassium 3.8 mmol/L (3.3-5.0) 06/02/22 03:59 Potassium 3.3 mmol/L (3.5-5.1) L 06/03/22 07:42 POC Chloride 102 mmol/L (101-112) 06/01/22 17:07 Chloride 111 mmol/L (98-107) H 06/03/22 07:42 Carbon Dioxide 23 mmol/L (21-32) 06/03/22 07:42 POC Total CO2 31 mmol/L (24-31) 06/01/22 17:07 Anion Gap 7 (3-11) 06/03/22 07:42 POC Anion Gap 9.0 mmol/L (16-25) L 06/01/22 17:07 POC BUN 8 mg/dl (7-18) 06/01/22 17:07 BUN 12 mg/dl (6-23) 06/03/22 07:42 Creatinine 0.48 mg/dl (0.6-1.2) L 06/03/22 07:42 POC Creatinine 0.6 mg/dl (0.6-1.3) 06/01/22 17:07 Est Cr Clr Drug Dosing 151.8 ml/min 06/03/22 07:42 Est GFR ( Amer) 143.2 ml/min 06/03/22 07:42 Est GFR (Non-Af Amer) 123.6 ml/min 06/03/22 07:42 BUN/Creatinine Ratio 25.0 (10-20) H 06/03/22 07:42 Glucose 73 mg/dl (70-99(Fasting)) 06/03/22 07:42 POC Glucose 96 mg/dl (70-99) 06/02/22 16:23 POC Glucose (other) 100 mg/dl (70-99) H 06/01/22 17:07 Lactate 1.1 mmol/L (0.4-2.0) 06/01/22 20:07 Calcium 8.0 mg/dl (8.6-10.3) L 06/03/22 07:42 POC Ioniz Calcium Lidia 1.04 mmol/l (1.12-1.32) L 06/01/22 17:07 Phosphorus 2.4 mg/dl (2.5-4.9) L 06/03/22 07:42 Magnesium 1.7 mg/dl (1.7-2.4) 06/03/22 07:42 Total Bilirubin 0.7 mg/dl (0.2-1.0) 06/01/22 16:55 Direct Bilirubin 0.2 mg/dl (0-0.2) 06/01/22 16:55 AST 15 U/L (13-39) 06/01/22 16:55 ALT 8 U/L (7-52) 06/01/22 16:55 Alkaline Phosphatase 61 U/L (34-104) 06/01/22 16:55 Troponin I High Sens 12.2 pg/ml (0-14) 06/01/22 16:55 Total Protein 7.6 gm/dl (6.0-8.3) 06/01/22 16:55 Albumin 4.1 gm/dl (3.4-5.0) 06/01/22 16:55 Procalcitonin 0.28 ng/ml (0-0.5) 06/01/22 16:55 Urine Color Yellow 06/01/22 21:00 Urine Appearance Clear (Clear) 06/01/22 21:00 Urine pH 6.0 (4.5-7.5) 06/01/22 21:00 Ur Specific [place] 1.033 (1.000-1.030) H 06/01/22 21:00 Urine Protein Negative (Negative) 06/01/22 21:00 Urine Glucose (UA) Negative (Negative) 06/01/22 21:00 Urine Ketones 2+ (Negative) H 06/01/22 21:00 Urine Blood 2+ (Negative) H 06/01/22 21:00 Urine Nitrite Negative (Negative) 06/01/22 21:00 Urine Bilirubin Negative (Negative) 06/01/22 21:00 Urine Urobilinogen Negative (Negative) 06/01/22 21:00 Ur Leukocyte Esterase Negative (Negative) 06/01/22 21:00 Urine WBC (Auto) 0 /hpf (0-5) 06/01/22 21:00 Urine RBC (Auto) 5-10 /hpf (0-4) H 06/01/22 21:00 U Hyaline Cast (Auto) 0 /lpf (0-5) 06/01/22 21:00 U Epithel Cells (Auto) 0-5 /lpf (0-5) 06/01/22 21:00 Urine Bacteria (Auto) Negative (Negative) 06/01/22 21:00 Nasal Screen MRSA (PCR) Negative (Negative) 06/01/22 22:30 SARS-CoV-2, RNA, NAAT NEGATIVE (NEGATIVE) 06/01/22 18:00 Impressions Soft Tissue Neck CT 06/01/22 17:17 CT soft tissue neck w con HISTORY: 41 years-old Female eval airway and abscess follow-up study in a patient with prior left-sided facial surgery with drainage COMPARISON: None TECHNIQUE: Multiple axial CT images of the soft tissues of the neck were obtained following the intravenous administration of 88 mL Optiray 350. A dose lowering technique was used consistent with the principals of FRANCIS. FINDINGS: The imaged intracranial structures are unremarkable. Orbits are within normal limits. Patent airway. The glottis is within normal limits. Unremarkable thyroid and submandibular glands. There is asymmetric enlargement and enhancement of the left sublingual gland. Mildly prominent subcentimeter left cervical chain and 70 lymph nodes measuring up to 8 mm are likely reactive. There is asymmetric enlargement with heterogeneous enhancement involving the left masseter with multilocular intramuscular abscess measuring up to 3.5 cm in cranial caudal dimension and 2.9 cm in AP dimension. Edema extends into the adjacent parotid gland and subcutaneous tissues of the left face and cheek tracking along the platysma and anterior upper chest. Subpleural bulla of the lung apices. Mastoid air cells and paranasal sinuses are clear. There is a 3 cm catheter present within the left cheek. Numerous dental caries are noted along with missing teeth. No osseous erosive changes. No large periapical cysts. IMPRESSION: 1. 8 3 cm catheter is present within the left oral cavity. 2. Moderate left facial inflammatory changes with multilocular intramuscular abscess within the masseter muscle measuring up to approximately 4 cm. 3. Multifocal odontogenic disease. ACT 112: Negative or not required by law. The above report was generated using voice recognition software. It may contain grammatical, syntax or spelling errors. Electronically signed by: Julio Esteban M.D. 06/01/2022 5:43 PM Chest X-Ray 06/01/22 21:30 XR chest 1V portable HISTORY: 41 years-old Female OG tube acute respiratory failure COMPARISON: CT soft tissue neck of same day TECHNIQUE: AP view of the chest FINDINGS: Endotracheal tube overlies the midline, 2.1 m superior to the hellen. Enteric tube courses below the diaphragm into the stomach with distal tip outside the [id number]. No pneumothorax, large pleural effusion, airspace consolidation or pulmonary edema. Bones of the chest appear grossly intact. IMPRESSION: 1. Endotracheal and enteric tube placement as above. 2. The lungs appear clear. 3. No pneumothorax. ACT 112: Negative or not required by law. The above report was generated using voice recognition software. It may contain grammatical, syntax or spelling errors. Electronically signed by: Julio Esteban M.D. 06/02/2022 8:03 AM
[2022-06-04] MEDS: KETOROLAC TROMETHAMINE 15 MG/ML VIAL IV PRN ×2 (00:16→07:35)
[2022-06-04] MEDS: AMPICILLIN/SULBACTAM SOD 3,000 MG in 0.9 % SODIUM CHLORIDE 100 ML IV SCH ×2 (03:42→09:07)
[2022-06-04 07:04] LABS: Basophils # (auto) 0.03 K/uL (0-0.2); Basophils % (auto) 0.6 %; Eosinophils # (auto) 0.09 K/uL (0-0.50); Eosinophils % (auto) 1.7 %; Hematocrit (blood only) 30.4 % (37.0-47.0); Hemoglobin 10.4 g/dl (12.0-16.0); Immature Granulocytes # (auto) 0.03 K/uL (0.01-0.20); Immature Granulocytes % (auto) 0.6 %; Lymphocytes # (auto) 2.08 K/uL (1.2-3.4); Lymphocytes % (auto) 39.8 %; Mean Corpuscular Hemoglobin 32.2 pg (25.0-34.0); Mean Corpuscular Hgb Conc 34.2 g/dL (32.0-36.0); Mean Corpuscular Volume 94.1 fL (80.0-100.0); Mean Platelet Volume 9.7 fL (9.4-12.4); Monocytes # (auto) 0.41 K/uL (0.11-0.59); Monocytes % (auto) 7.9 %; Neutrophils # (auto) 2.58 K/uL (1.40-6.50); Neutrophils % (auto) 49.4 %; Platelet Count 282 K/uL (130-400); RDW Coefficient of Variation 12.7 % (11.5-14.5); RDW Standard Deviation 43.9 fL (36.4-46.3); Red Blood Count 3.23 M/uL (4.20-5.40); White Blood Count 5.22 K/ul (4.8-10.8)
[2022-06-04 07:30] LABS: BUN Creatinine Ratio 13.3 (10-20); Calcium 8.4 mg/dl (8.6-10.3); Creatinine Clr Calc Pharmacy 161.9 ml/min; Est GFR (African American) 146.3 ml/min; Est GFR (Non-African American) 126.2 ml/min; Magnesium 1.7 mg/dl (1.7-2.4); Phosphorus 2.9 mg/dl (2.5-4.9); Potassium 3.7 mmol/L (3.5-5.1)
[2022-06-04] MEDS: ESCITALOPRAM OXALATE 20 MG TAB PO SCH (08:27)
[2022-06-04] MEDS: HEPARIN SOD 5,000 UNIT/0.5 ML VIAL SQ SCH (08:27)
[2022-06-04] MEDS: ACETAMINOPHEN 325 MG TAB PO PRN (12:16)
--- NOTE | 2022-06-04 14:34 | Discharge Summary ---
Date of Service June 04, 2022 Admission HPI Per Admitting Provider This is a 41-year-old female who has significant past medical history of GERD, peptic ulcer disease, CARINE, tobacco use disorder who presented to ED secondary to worsening dental infection and shortness of breath. Of significance patient was seen at [facility] ER yesterday due to dental infection and a [place] drain was placed. She was placed on oral antibiotics and received IV antibiotics while in ED. Due to worsening infection patient started developing difficulty breathing and presented to ER. Patient was taken emergently to the OR with Dr. Garcia who did an extensive I&D in the submandibular region, teeth were extracted and 2 drains were placed. Her airway remained patent and she remains intubated. He feels source control has been achieved. She is admitted to the ICU secondary to currently being intubated. ROS unobtainable due to unconsciousness. In ED she received IV vancomycin and Zosyn. Admission Exam Per Admitting Provider Intubated and sedated in the ICU Hemodynamically stable Chestdecreased breath sounds bilaterally HeartS1-S2 Abdomenbenign Principal Diagnosis Mandibular abscess with carious teeth 06/01 Status post I&D of left facial abscess with with teeth extraction Discharge Exam GENERAL: Alert and oriented x3. NAD, on RA. HEENT: No pallor, no icterus. Pupils equal, round and reactive to light. Oral mucosa moist. . Left cheek w/ swelling/tenderness w/ clean dressing w/o soakage. NECK: No JVD, no neck masses. HEART: S1 and S2 heard. Regular rate and rhythm. No murmur, no gallop. RESPIRATORY SYSTEM: Normal AP diameter. No accessory muscle use. No wheezing, no crackles. ABDOMEN: Soft, bowel sounds present, nontender, no distention. CENTRAL NERVOUS SYSTEM: No facial droop. Speech is clear. Obeys simple commands. Moves extremities. EXTREMITIES: No edema, no erythema seen. has body tattoos Discharge Data Allergies Allergy/AdvReac Type Severity Reaction Status Date / Time bupropion [From Wellbutrin] Allergy Mild Unknown Verified 06/02/22 15:18 cephalexin [From Keflex] Allergy Hives Verified 06/02/22 15:18 Consultations 06/01/22 18:07 ED Decision to Admit Stat 06/01/22 19:59 Consult Counter Professional Routine Procedures Performed Operation Date: 06/01/22 17:45 Actual Procedures p Facial Incision and Drainage(Left) - Pablo Garcia DMD Ordered Studies 06/01/22 17:17 CT neck soft tissues [CT soft tissue neck w con] Stat Hospital Course (1) Ludwigs angina: (2) Mandibular abscess: (3) Abscess of pulp of tooth: (4) Carious teeth: (5) Endotracheally intubated: Plan Patient is a 41-year-old female with past medical history of GERD, PUD presented to the ED with worsening dental infection and shortness of breath. She was seen in [facility] ER a day prior; [place] drain was placed and she was placed on oral antibiotic. Patient came to the ED with increasing difficulty breathing. Patient was intubated; was taken to the OR emergently by oral surgery for extensive I&D and teeth extraction. She was placed on IV antibiotic (initially Zosyn and changed to Unasyn). She was extubated day later. Patient's swelling and pain gradually went down. Blood cultures were negative. Patient was discharged home with close follow-up with oral surgery on the day after discharge. Patient will complete course of antibiotic as per oral surgery. Total Time Total Time Spent Total Time Spent (In Minutes): 40 Total Time Includes: Examination of the Patient, Discharge Planning, Medication Reconciliation, Communication With Other Providers and Other Discharge Plan Discharge Items Patient Disposition: Home - Self-Care Reason For Visit: DENTAL ABSCESS, RESPIRATORY DISTRESS Discharge Diagnosis: s/p significant oral-facial infection left side Activity: Resume your previous activity Lifting: Gradually increase as tolerated Bathing: No limitations Exercise/Sports: Wait until after follow-up appointment Driving/Machine Use: Resume 3 days after discharge Weightbearing: Full weightbearing Non-emergency contact: Surgeon Call non-emergency contact if: your temperature is above 101.5, your wound has increased redness, your wound has increased drainage and your wound pain has increased Follow-up/Referrals: Pablo Garcia DMD [Physician] - Katie Soto CRNP [Primary Care Provider] - 06/09/22 2:00 pm (Date & Time 06/09/2022 2:00 PM Provider LAURA Lundberg Department [facility] ) Diet: Regular, Full liquid and Clear liquid Diet Texture: Easy to Chew Diet Comment: start with clear--then full and then dental soft Addtl Attending Provider Instructions: ADDITIONAL ACTIVITY RECOMMENDATIONS: * [place] teeth after every meal. It is very important to keep your mouth clean to prevent infection. * Starting tonight rinse with the Peridex as directed then 2 x a day * it is very important to keep well hydrated, this prevents fever and possible dry socket pain SPECIAL CARE INSTRUCTIONS: *It is not uncommon that between day 2-4 that your swelling will be at its worst this is very normal, do not be alarmed. * Massage and apply heat (hot water bottle or heating pad) for the next two days, as often as possible. * Tomorrow start rinsing your mouth with 1/2 teaspoon salt in 8 ounces warm water. This rinse should be used every 4-6 hours. * You may experience slight nausea. To prevent this, never take your medication on an empty stomach. If nauseated, take small sips of bakari idalia until you feel better; then you may start on applesauce and toast. * Some swelling is common. It should gradually decrease within 4-5 days. * A certain amount of drainage is to be expected. It is often possible to control placing folded gauze over the area with light tape. call Dr Garcia at [phone] * You may experience some discomfort for a few days. If pain or swelling increases, Call Dr Garcia * Return to the office for a follow up check up on: Drain removal June 04 at 4:30 * office address--[facility] [address] phone # [phone] Pending Studies at Discharge: No Stand-Alone Forms: My [facility], Smoking Cessation Medications and DC Order Prescriptions: Continued amoxicillin-pot clavulanate 875-125 mg tablet 1 tab PO Q12H Qty: 20 0RF hydrocodone-acetaminophen 5-325 mg tablet 1 tab PO Q4H PRN (Reason: pain) Qty: 14 0RF ondansetron HCl 8 mg tablet 8 mg PO Q8H PRN (Reason: nausea and vomiting) Qty: 10 0RF escitalopram oxalate 20 mg Tablet 20 mg PO DAILY Discharge Orders: Discharge Order (Routine); Ordered 06/04/22 Ordered By: Bladimir Reyes/Other Patient Handouts: Dental Abscess, How to [place] Your Teeth, ED Cellulitis, Facial, Dental Abscess Facial Cellulitis, ED Tooth Abscess Admission Data Admit Date/Time: 06/01/22 18:19 Attending Provider: Bladimir Viveros Admit Provider: Galindo Concepcion Primary Care Provider: Katie Soto Other Providers: Galindo Concepcion ; Aftab Jain Other Interventions: Discharge Summary Assessment (RN) Last Done: 06/04/22 10:37
== END 2022-06-04 15:24 | disposition home or self-care (01) | DRG 137 ==
LOC: ED 16:40 → OR 17:30 → 1E 17:30 → SUATTDRO 18:19 → 3W 06-02 15:23